=== PATIENT | female | born 1970 | race American Indian/Alaskan Native ===

== ENCOUNTER 2016-07-04 20:18 | Emergency (ER) | payer MEDICAID ==
[2016-07-04 20:37] VITALS: BP 129/87; TEMP 98.2; BMI 46.9
[2016-07-04] MEDS ORDERED: Oxycodone/Acetaminophen 5/325 mg Tab PO STA (21:05)
--- NOTE | 2016-07-04 21:17 | ED PDOC ---
Arrival/HPI - General Chief Complaint: Back Pain Time Seen by Provider: 07/04/16 20:51 Historian: Patient - History of Present Illness Narrative History of Present Illness (Text): 07/04/16 21:12 Rl Bowden is a 45 year old, whose past medical history includes diverticulitis, hypertension, and asthma, who presents to the ED complaining left lower back pain radiating down her left leg for 1 week. Patient states pain is worsened with movement and denies any relief after taking Advil. Patient denies any fever, chest pain, shortness of breath, cough, nausea, vomiting, urinary symptoms, or any other complaints. Time/Duration: 1 week Symptom Onset: Gradual Symptom Course: Unchanged Activities at Onset: Rest, Light Modifying Factors (Text): worse with movement, no relief with Advil Context: Home Past Medical History - Provider Review Nursing Documentation Reviewed: Yes - Infectious Disease Hx of Infectious Diseases: None - Tetanus Immunization Tetanus Immunization: Unknown - Cardiac Hx Cardiac Disorders: Yes Hx Hypertension: Yes - Pulmonary Hx Respiratory Disorders: Yes Hx Asthma: Yes Hx Sleep Apnea: Yes - Neurological Hx Neurological Disorder: No - HEENT Hx HEENT Disorder: No - Renal Hx Renal Disorder: No - Endocrine/Metabolic Hx Endocrine Disorders: No - Hematological/Oncological Hx Blood Disorders: No - Integumentary Hx Dermatological Disorder: No - Musculoskeletal/Rheumatological Hx Musculoskeletal Disorders: No - Gastrointestinal Hx Gastrointestinal Disorders: Yes Hx Diverticulitis: Yes - Genitourinary/Gynecological Hx Genitourinary Disorders: No - Psychiatric Hx Psychophysiologic Disorder: No Hx Substance Use: No - Past Surgical History Past Surgical History: No Previous - Surgical History Other/Comment: Left breast lymph node removed - Anesthesia Hx Anesthesia: Yes Hx Anesthesia Reactions: No Hx Malignant Hyperthermia: No - Suicidal Assessment Feels Threatened In Home Enviroment: No Family/Social History - Physician Review Nursing Documentation Reviewed: Yes Family/Social History: No Known Family HX Smoking Status: Former Smoker Hx Alcohol Use: No Hx Substance Use: No Hx Substance Use Treatment: No Allergies/Home Meds Allergies/Adverse Reactions: Allergies Penicillins Allergy (Verified 04/30/16 08:00) ANAPHYLAXIS Home Medications: Home Meds Medication Instructions Recorded Confirmed Albuterol HFA [Ventolin HFA 90 2 puff IH [id number] PRN 10/15/14 07/04/16 mcg/actuation (8 g)] Review of Systems - Physician Review All systems were reviewed & negative as marked: Yes - Review of Systems Constitutional: Normal. absent: Fevers Respiratory: Normal. absent: SOB, Cough Cardiovascular: Normal. absent: Chest Pain Gastrointestinal: Normal. absent: Abdominal Pain, Nausea, Vomiting Genitourinary Female: Normal. absent: Dysuria, Frequency, Hematuria, Urine Output Changes Musculoskeletal: Back Pain (+left lower back pain) Psychiatric: Normal Physical Exam - Physical Exam Narrative Physical Exam (Text): Morbidly obese, black female Vital Signs Reviewed: Yes Vital Signs Temp Pulse Resp BP Pulse Ox 07/04/16 20:35 98.2 F 101 H 16 129/87 96 Temperature: Afebrile Blood Pressure: Normal Pulse: Regular Respiratory Rate: Normal Appearance: Positive for: Well-Appearing, Non-Toxic, Comfortable Pain Distress: None Mental Status: Positive for: Alert and Oriented X 3 - Systems Exam Head: Present: Atraumatic, Normocephalic Mouth: Present: Moist Mucous Membranes Respiratory/Chest: Present: Clear to Auscultation, Good Air Exchange. No: Respiratory Distress, Accessory Muscle Use Cardiovascular: Present: Regular Rate and Rhythm Abdomen: Present: Normal Bowel Sounds. No: Tenderness, Distention, Peritoneal Signs Back: Present: Normal Inspection. No: Midline Tenderness, Paraspinal Tenderness Lower Extremity: Present: Normal Inspection. No: Edema Neurological: Present: GCS=15 Skin: Present: Warm, Dry, Normal Color. No: Rashes Psychiatric: Present: Alert, Oriented x 3, Normal Insight, Normal Concentration Medical Decision Making ED Course and Treatment: 07/04/16 21:12 Impression: 45 year old female complaining of left lower back pain radiating down left leg for 1 week. Plan: -- XR Lumbar Spine -- Urinalysis -- Percocet -- Toradol -- Valium -- Reassess and disposition Progress Notes: 07/04/16 22:34 Patient with back pain with no grave signs. XR unremarkable. Patient feeling better after meds. Urine with no UTI or RBCs; doubt urinary source - will d/c on nsaid, muscle relaxant and analgesic and f/u pmd. - Lab Interpretations Lab Results: Lab Results 07/04/16 21:22: Urine Color Yellow, Urine Appearance Clear, Urine pH 6.0, Ur Specific Elkins 1.025, Urine Protein Negative, Urine Glucose (UA) Negative, Urine Ketones Negative, Urine Blood Trace-lysed H, Urine Nitrate Negative, Urine Bilirubin Negative, Urine Urobilinogen 0.2, Ur Leukocyte Esterase Negative , Urine RBC 0 - 2, Urine WBC 0 - 2, Ur Epithelial Cells 4 - 5, Urine Bacteria Few I have reviewed the lab results: Yes - RAD Interpretation Radiology Orders: 07/04/16 21:12 LS SPINE WITH OBL > 18 YRS OLD [RAD] Stat Title Search Manager: ED Physician - Medication Orders Current Medication Orders: Discontinued Medications Diazepam (Valium) 2.5 mg PO ONCE STA Stop: 07/04/16 21:06 Last Admin: 07/04/16 21:24 Dose: 2.5 MG Behavioural Document 07/04/16 21:24 [email or web address] (Rec: 07/04/16 21:24 [email or web address] [id number]) Maintenance Maintenance Dose Yes Nonmedicinal Nonmedicinal Interventions Redirect Behavior Behavior for Medication: Anxiety Ketorolac Tromethamine (Toradol) 60 mg IM STAT STA Stop: 07/04/16 21:06 Last Admin: 07/04/16 21:24 Dose: 60 MG IM Administration Charges Document 07/04/16 21:24 [email or web address] (Rec: 07/04/16 21:24 [email or web address] [id number]) Injection Site MAR Injection Site Right Gluteus Justin Charges for Administration # of IM Administrations 1 Oxycodone/Acetaminophen (Percocet 5/325 Mg Tab) 1 tab PO STAT STA Stop: 07/04/16 21:06 Last Admin: 07/04/16 21:24 Dose: 1 TAB - Scribe Statement The provider has reviewed the documentation as recorded by the Ac Jackson Provider Attestation: All medical record entries made by the Ac were at my direction and personally dictated by me. I have reviewed the chart and agree that the record accurately reflects my personal performance of the history, physical exam, medical decision making, and the department course for this patient. I have also personally directed, reviewed, and agree with the discharge instructions and disposition. Disposition/Present on Arrival - Present on Arrival Any Indicators Present on Arrival: No History of DVT/PE: No History of Uncontrolled Diabetes: No Urinary Catheter: No History of Decub. Ulcer: No History Surgical Site Infection Following: None - Disposition Have Diagnosis and Disposition been Completed?: Yes Diagnosis: Lumbar radiculopathy Disposition: HOME/ ROUTINE Disposition Time: 22:40 Patient Plan: Discharge Patient Problems: Current Active Problems Problem Status Diagnosed Diverticulitis large intestine w/o perforation or abscess w/o bleeding Acute Lumbar radiculopathy Acute Condition: GOOD Discharge Instructions (ExitCare): Lumbar Radiculopathy (ED) Additional Instructions: Avoid heavy lifting. Take the medications as prescribed. Follow up with your primary care doctor. Return to the emergency department if any new concerning symptoms. Prescriptions: Baclofen [Lioresal] 1 tab PO TID PRN #20 tab PRN Reason: Pain, Moderate (4-7) Naproxen [Naprosyn] 500 mg PO BID PRN #20 tab PRN Reason: Pain oxyCODONE/Acetaminophen [Percocet 5/325 mg Tab] 1 tab PO Q6H PRN #12 tab PRN Reason: Pain, Severe (8-10) Referrals: Mark Castellanos DO [Primary Care Provider] - Follow up with primary Forms: WORK NOTE
[2016-07-04 22:06] LABS: URINE BILIRUBIN NEGATIVE (NEGATIVE); URINE BLOOD TRACE-LYSED (NEGATIVE); URINE GLUCOSE (UA) NEGATIVE (NEGATIVE); URINE KETONE NEGATIVE (NEGATIVE); URINE LEUKOCYTE ESTERASE NEGATIVE Leu/uL (NEGATIVE); URINE PROTEIN NEGATIVE mg/dL (<30 mg/dL); URINE UROBILINOGEN 0.2 E.U./dL (<1 E.U./dL)
[2016-07-04 22:08] LABS: URINE APPEARANCE CLEAR (CLEAR); URINE COLOR YELLOW (YELLOW)
[2016-07-04 22:14] LABS: URINE RBC 0 - 2 /hpf (0-2); URINE WBC 0 - 2 /hpf (0-6)
[2016-07-04 22:15] LABS: URINE BACTERIA FEW (NEG)
[2016-07-04 22:46] VITALS: PULSE 99; RESP 18
[2016-07-04 22:47] VITALS: O2SAT 96
--- NOTE | 2016-07-05 09:43 | RAD ---
PROCEDURE: Radiographs of the Lumbar Spine. HISTORY: Low back pain COMPARISON: No prior. FINDINGS: BONES: There is normal alignment of the lumbar vertebral bodies. Lumbar lordosis is maintained. Vertebral bodies are normal in height. There is no acute fracture or bone destruction. There is no spondylolysis or spondylolisthesis. DISC SPACES: There is mild multilevel degenerative disc disease in the lower lumbar spine with anterior spurring, reduced disc heights and multilevel facet arthropathy, worse at L5-S1. OTHER FINDINGS: None. IMPRESSION: No acute fracture, spondylolysis or spondylolisthesis. Mild multilevel degenerative disc disease in the lower lumbar spine, worse at L5-S1.
== END 2016-07-04 22:47 | disposition home or self-care (01) ==
LOC: ED 20:18
DX: M54.16 Radiculopathy, lumbar region (principal); Z87.891 Personal history of nicotine dependence; Z88.0 Allergy status to penicillin
CPT/HCPCS: 72110; 81001; 96372; 99282; J1885

== ENCOUNTER 2016-08-19 15:27 | Emergency (ER) | payer MEDICAID ==
[2016-08-20 01:06] LABS: ADD MANUAL DIFF? NO
[2016-08-20 08:35] LABS: INR 0.94 (0.93-1.08); PARTIAL THROMBOPLASTIN TIME 20.9 Seconds (23.7-30.8)
[2016-08-20 10:46] LABS: HEMATOCRIT 42.6 % (36.0-48.0); MEAN CELL VOLUME 90.6 fL (80.0-105.0); MEAN CORPUSCULAR HEMOGLOBIN 30.9 pg (25.0-35.0); MEAN PLATELET VOLUME 10.1 fl (7.0-11.0); RED CELL DISTRIBUTION WIDTH 13.6 % (11.5-14.5); WHITE BLOOD COUNT 7.6 10^3/ul (4.5-11.0)
--- NOTE | 2016-08-20 14:43 | US ---
HISTORY: Leg pain and swelling. Evaluate for DVT PHYSICIAN(S): Travon Teran MD. TECHNIQUE: Duplex sonography and color-flow Doppler with graded compression were used to evaluate the deep venous systems of both lower extremities. The exam is somewhat limited by body habitus and edema. FINDINGS: The visualized deep venous systems of both lower extremities are sonographically normal and compressible. Normal wave forms and augmentation are seen. There is no sonographic evidence for deep venous thrombosis in the visualized segments of both lower extremities. IMPRESSION: No sonographic evidence for deep venous thrombosis in the visualized segments of both lower extremities.
[2016-08-20 15:40] LABS: BLOOD UREA NITROGEN 14 mg/dL (7-21); CALCIUM 9.3 mg/dL (8.4-10.5); CARBON DIOXIDE 27 mmol/L (21-33); CHLORIDE 102 mmol/L (98-107); GFR AFRICAN-AMERICAN > 60; GLUCOSE,RANDOM 99 mg/dL (70-110); MAGNESIUM 2.1 mg/dL (1.7-2.2); SODIUM 140 mmol/L (132-148)
[2016-08-20 17:04] LABS: BASO # 0.01 K/mm3 (0.0-2.0); BASO % 0.1 % (0.0-3.0); EOS # 0.1 (0.0-0.7); EOS % 1.2 % (1.5-5.0); GRAN # 4.52 (1.4-6.5); GRAN % 59.2 % (50.0-68.0); HEMATOCRIT 42.6 % (36.0-48.0); LYMPH # 2.6 (1.2-3.4); LYMPH % 34.5 % (22.0-35.0); MEAN CELL VOLUME 90.6 fL (80.0-105.0); MEAN CORPUSCULAR HEMOGLOBIN 30.9 pg (25.0-35.0); MEAN PLATELET VOLUME 10.1 fl (7.0-11.0); MONO # 0.4 (0.1-0.6); PLATELET COUNT 275 10^3/uL (120.0-450.0); RED CELL DISTRIBUTION WIDTH 13.6 % (11.5-14.5); WHITE BLOOD COUNT 7.6 10^3/ul (4.5-11.0)
[2016-08-24 03:28] LABS: GLUCOSE,RANDOM 99 mg/dL (70-110)
[2016-08-24 03:30] LABS: BLOOD UREA NITROGEN 14 mg/dL (7-21); CALCIUM 9.3 mg/dL (8.4-10.5); CARBON DIOXIDE 27 mmol/L (21-33); CHLORIDE 102 mmol/L (98-107); GFR AFRICAN-AMERICAN > 60; MAGNESIUM 2.1 mg/dL (1.7-2.2); SODIUM 140 mmol/L (132-148)
== END 2016-08-19 22:36 | disposition home or self-care (01) ==
LOC: ED 15:27
DX: M79.605 Pain in left leg (principal); M79.604 Pain in right leg; M79.89 Other specified soft tissue disorders; I10 Essential (primary) hypertension

== ENCOUNTER 2016-10-28 18:42 | Emergency (ER) | payer MEDICAID ==
[2016-10-28 18:42] VITALS: BMI 46.9
[2016-10-28] MEDS ORDERED: Albuterol-Ipratrop 3 mg / 0.5 (3 ml) UD IH STA (19:47)
[2016-10-28 19:56] VITALS: BP 123/81; PULSE 97; RESP 19; TEMP 98; O2SAT 94
--- NOTE | 2016-10-28 20:06 | ED PDOC ---
Arrival/HPI - General Chief Complaint: Cough, Cold, Congestion Time Seen by Provider: 10/28/16 19:35 Historian: Patient - History of Present Illness Narrative History of Present Illness (Text): 10/28/16 20:03 45 yo female, h/o HTN, Asthma, Diverticulitis, Gastric Sleeve Surgery, presents to the ED c/o cough x 2 days. States that the cough is clear and white. No nasal congestion or gunny nose. No fever, chills or bodyaches. She denies any chest pain or shortness of breathe. She is here visiting her son in the hospital so she just wanted to make sure she didn't have Pneumonia. No recent travel or prolonged immobilization. No leg pain or swelling. No h/o DVT or PE. No hemoptysis. No OCP use. PMD: Dr. Castellanos Past Medical History - Provider Review Nursing Documentation Reviewed: Yes - Travel History Have you recently traveled outside [place] w/in the past 3 mons?: No - Infectious Disease Hx of Infectious Diseases: None - Tetanus Immunization Tetanus Immunization: Unknown - Cardiac Hx Cardiac Disorders: Yes Hx Hypertension: Yes - Pulmonary Hx Respiratory Disorders: Yes Hx Asthma: Yes Hx Sleep Apnea: Yes - Neurological Hx Neurological Disorder: No - HEENT Hx HEENT Disorder: No - Renal Hx Renal Disorder: No - Endocrine/Metabolic Hx Endocrine Disorders: No - Hematological/Oncological Hx Blood Disorders: No - Integumentary Hx Dermatological Disorder: No - Musculoskeletal/Rheumatological Hx Musculoskeletal Disorders: No - Gastrointestinal Hx Gastrointestinal Disorders: Yes Hx Diverticulitis: Yes - Genitourinary/Gynecological Hx Genitourinary Disorders: No - Psychiatric Hx Psychophysiologic Disorder: No Hx Substance Use: No - Past Surgical History Past Surgical History: No Previous - Surgical History Hx Gastric Bypass Surgery: Yes (gastric sleeve) Other/Comment: Left breast lymph node removed - Anesthesia Hx Anesthesia: Yes Hx Anesthesia Reactions: No Hx Malignant Hyperthermia: No - Suicidal Assessment Feels Threatened In Home Enviroment: No Family/Social History - Physician Review Nursing Documentation Reviewed: Yes Family/Social History: No Known Family HX Smoking Status: Former Smoker Hx Alcohol Use: No Hx Substance Use: No Hx Substance Use Treatment: No Allergies/Home Meds Allergies/Adverse Reactions: Allergies Penicillins Allergy (Verified 04/30/16 08:00) ANAPHYLAXIS Home Medications: Home Meds Medication Instructions Recorded Confirmed Albuterol HFA [Ventolin HFA 90 2 puff IH [id number] PRN 10/15/14 10/28/16 mcg/actuation (8 g)] amLODIPine [Norvasc] 5 mg PO DAILY 10/28/16 10/28/16 Review of Systems - Review of Systems Constitutional: Normal Eyes: Normal ENT: Normal Respiratory: Cough, Sputum. absent: SOB, Wheezing Cardiovascular: Normal. absent: Chest Pain, Calf Pain, NEUMANN, Orthopnea Gastrointestinal: Normal Genitourinary Female: Normal Musculoskeletal: Normal Skin: Normal Neurological: Normal Endocrine: Normal Hemo/Lymphatic: Normal Psychiatric: Normal Physical Exam Vital Signs Reviewed: Yes Vital Signs Temp Pulse Resp BP Pulse Ox 10/28/16 19:53 98.0 F 97 H 19 123/81 94 L 10/28/16 18:50 88 10/28/16 18:45 98.6 F 107 H 18 100/62 95 Temperature: Afebrile Blood Pressure: Normal Pulse: Tachycardic Respiratory Rate: Normal Appearance: Positive for: Well-Appearing, Non-Toxic, Comfortable Pain Distress: None Mental Status: Positive for: Alert and Oriented X 3 - Systems Exam Head: Present: Atraumatic, Normocephalic Pupils: Present: PERRL Extroacular Muscles: Present: EOMI Conjunctiva: Present: Normal Mouth: Present: Moist Mucous Membranes Neck: Present: Normal Range of Motion Respiratory/Chest: Present: Clear to Auscultation, Good Air Exchange. No: Respiratory Distress, Accessory Muscle Use, Wheezes, Decreased Breath Sounds, Rhonchi Cardiovascular: Present: Regular Rate and Rhythm, Normal S1, S2. No: Murmurs Abdomen: Present: Normal Bowel Sounds. No: Tenderness, Distention, Peritoneal Signs Back: Present: Normal Inspection Upper Extremity: Present: Normal Inspection. No: Cyanosis, Edema Lower Extremity: Present: Normal Inspection. No: Edema Neurological: Present: GCS=15, CN II-XII Intact, Speech Normal Skin: Present: Warm, Dry, Normal Color. No: Rashes Psychiatric: Present: Alert, Oriented x 3, Normal Insight, Normal Concentration Medical Decision Making ED Course and Treatment: 10/28/16 20:06 45 yo female with cough r/o bronchitis vs pneumonia vs asthma exacerbation -- XRay -- duoneb -- reevaluate and disposition 10/28/16 20:10 RN Cady told me that patient walked out of the department. When asked where she was going she stated she was going to make a phone call. RN tried to convince her not to go and patient left anyway. Patient did not return to the ED. - RAD Interpretation Radiology Orders: 10/28/16 19:47 CHEST TWO VIEWS (PA/LAT) [RAD] Stat - Medication Orders Current Medication Orders: Discontinued Medications Albuterol/Ipratropium (Duoneb 3 Mg/0.5 Mg (3 Ml) Ud) 3 ml IH STAT STA Stop: 10/28/16 19:48 Disposition/Present on Arrival - Present on Arrival Any Indicators Present on Arrival: No History of DVT/PE: No History of Uncontrolled Diabetes: No Urinary Catheter: No History of Decub. Ulcer: No History Surgical Site Infection Following: Bariatric Surgery - Disposition Have Diagnosis and Disposition been Completed?: No Diagnosis: Cough Disposition: ELOPEMENT - ER ONLY Disposition Time: 20:10 Condition: GOOD Referrals: Mark Castellanos, [Primary Care Provider] - Follow up with primary Forms: [employer] (Yakut)
== END 2016-10-28 20:10 | disposition left against medical advice (07) ==
LOC: ED 18:42
DX: R05 Cough (principal); I10 Essential (primary) hypertension; J45.909 Unspecified asthma, uncomplicated; Z87.891 Personal history of nicotine dependence

== ENCOUNTER 2017-02-22 14:52 | Emergency (ER) | payer MEDICAID ==
[2017-02-22 15:12] VITALS: RESP 18; TEMP 98.2; O2SAT 98
[2017-02-22 15:15] VITALS: BMI 73.7
--- NOTE | 2017-02-22 15:58 | ED PDOC ---
Arrival/HPI - General Chief Complaint: Upper Extremity Problem/Injury Time Seen by Provider: 02/22/17 15:12 Historian: Patient - History of Present Illness Narrative History of Present Illness (Text): 02/22/17 15:55 46yo female present with complaint of left shoulder pain x one week. Notes that pain started when she woke up from sleep. Pain is worse with abduction of arm. States the pain intermittently radiates to her neck. She did not take any analgesic. Denies focal weakness, trauma, paresthesia, chest pain, SOB, any other complaint. Past Medical History - Provider Review Nursing Documentation Reviewed: Yes - Infectious Disease Hx of Infectious Diseases: None - Tetanus Immunization Tetanus Immunization: Unknown - Cardiac Hx Cardiac Disorders: Yes Hx Hypertension: Yes - Pulmonary Hx Respiratory Disorders: Yes Hx Asthma: Yes Hx Sleep Apnea: Yes - Neurological Hx Neurological Disorder: No - HEENT Hx HEENT Disorder: No - Renal Hx Renal Disorder: No - Endocrine/Metabolic Hx Endocrine Disorders: No - Hematological/Oncological Hx Blood Disorders: No - Integumentary Hx Dermatological Disorder: No - Musculoskeletal/Rheumatological Hx Musculoskeletal Disorders: No - Gastrointestinal Hx Gastrointestinal Disorders: Yes Hx Diverticulitis: Yes - Genitourinary/Gynecological Hx Genitourinary Disorders: No - Psychiatric Hx Psychophysiologic Disorder: No Hx Substance Use: No - Past Surgical History Past Surgical History: No Previous - Surgical History Hx Gastric Bypass Surgery: Yes (gastric sleeve) Other/Comment: Left breast lymph node removed - Anesthesia Hx Anesthesia: Yes Hx Anesthesia Reactions: No Hx Malignant Hyperthermia: No - Suicidal Assessment Feels Threatened In Home Enviroment: No Family/Social History - Physician Review Nursing Documentation Reviewed: Yes Family/Social History: Unknown Family HX Smoking Status: Current Some Days Smoker Hx Alcohol Use: Yes Hx Substance Use: No Hx Substance Use Treatment: No Allergies/Home Meds Allergies/Adverse Reactions: Allergies Penicillins Allergy (Verified 04/30/16 08:00) ANAPHYLAXIS Home Medications: Home Meds Medication Instructions Recorded Confirmed Albuterol HFA [Ventolin HFA 90 2 puff IH [id number] PRN 10/15/14 10/28/16 mcg/actuation (8 g)] amLODIPine [Norvasc] 5 mg PO DAILY 10/28/16 10/28/16 Review of Systems - Physician Review All systems were reviewed & negative as marked: Yes - Review of Systems Constitutional: Normal Eyes: Normal ENT: Normal Respiratory: Normal Cardiovascular: Normal Gastrointestinal: Normal Genitourinary Female: Normal Musculoskeletal: Arthralgias (Left shoulder pain) Skin: Normal Neurological: Normal Endocrine: Normal Hemo/Lymphatic: Normal Psychiatric: Normal Physical Exam Vital Signs Reviewed: Yes Vital Signs Temp Pulse Resp BP Pulse Ox 02/22/17 15:12 98.2 F 85 18 142/86 98 Temperature: Afebrile Blood Pressure: Normal Pulse: Regular Respiratory Rate: Normal Appearance: Positive for: Well-Appearing, Non-Toxic, Comfortable Pain Distress: None Mental Status: Positive for: Alert and Oriented X 3 - Systems Exam Head: Present: Atraumatic, Normocephalic Pupils: Present: PERRL Extroacular Muscles: Present: EOMI Conjunctiva: Present: Normal Mouth: Present: Moist Mucous Membranes Neck: Present: Normal Range of Motion Respiratory/Chest: Present: Clear to Auscultation, Good Air Exchange. No: Respiratory Distress, Accessory Muscle Use Cardiovascular: Present: Regular Rate and Rhythm, Normal S1, S2. No: Murmurs Abdomen: Present: Normal Bowel Sounds. No: Tenderness, Distention, Peritoneal Signs Back: Present: Normal Inspection Upper Extremity: Present: Normal ROM (FROM with pain on abduction up to 120degree), NORMAL PULSES, Tenderness (Left AC joint), Neurovascularly Intact. No: Cyanosis, Edema, Swelling, Deformity Lower Extremity: Present: Normal Inspection. No: Edema Neurological: Present: GCS=15, CN II-XII Intact, Speech Normal Skin: Present: Warm, Dry, Normal Color. No: Rashes Psychiatric: Present: Alert, Oriented x 3, Normal Insight, Normal Concentration Medical Decision Making ED Course and Treatment: 02/22/17 16:16 Pt in Ed for stated history. she had FROM of left arm. NVI. Distal and proximal pulse was intact. Left shoulder xray was negative EKG PT will be DC home with Betsy and refereed to her PMd/ortho for further outpt evaluation - RAD Interpretation Radiology Orders: 02/22/17 15:14 SHOULDER LEFT [RAD] Stat - Medication Orders Current Medication Orders: Discontinued Medications Ketorolac Tromethamine (Toradol) 60 mg IM STAT STA Stop: 02/22/17 15:16 Last Admin: 02/22/17 15:29 Dose: 60 mg MAR Pain Assessment Document 02/22/17 15:29 HI (Rec: 02/22/17 15:37 [id number]) Pain Reassessment Is this a pain reassessment? No Sleep Is patient sleeping during reassessment? No Presence of Pain Presence of Pain Yes Pain Scale Used Pain Scale Used Numeric Location Left, Right or Bilateral Left Pain Location Body Site Shoulder IM Administration Charges Document 02/22/17 15:29 HI (Rec: 02/22/17 15:37 [id number]) Injection Site MAR Injection Site Right Gluteus Justin Charges for Administration # of IM Administrations 1 Disposition/Present on Arrival - Present on Arrival Any Indicators Present on Arrival: No History of DVT/PE: No History of Uncontrolled Diabetes: No Urinary Catheter: No History of Decub. Ulcer: No History Surgical Site Infection Following: Bariatric Surgery - Disposition Have Diagnosis and Disposition been Completed?: Yes Diagnosis: Shoulder pain Disposition: HOME/ ROUTINE Disposition Time: 16:20 Patient Plan: Discharge Condition: STABLE Discharge Instructions (ExitCare): Shoulder Pain (ED) Additional Instructions: Follow up with your doctor Return to ED for any new or worsening symptoms Prescriptions: Naproxen [Naprosyn] 500 mg PO BID #20 tab Referrals: Mark Castellanos DO [Primary Care Provider] - Follow up with primary Huey Cameron III, MD [Medical Doctor] - Follow up with primary Forms: [employer] (Welsh), WORK NOTE
--- NOTE | 2017-02-22 16:00 | RAD ---
PROCEDURE: Radiographs of the Left Shoulder HISTORY: shoulder pain COMPARISON: No prior. FINDINGS: BONES: Normal. No fracture. JOINTS: Normal. Glenohumeral and acromioclavicular joints preserved. No osteoarthritis. SOFT TISSUES: Normal. OTHER FINDINGS: None. IMPRESSION: Normal radiographs of the left shoulder.
[2017-02-22 16:14] VITALS: BP 138/79; PULSE 75
[2017-02-22] MEDS ORDERED: Oxycodone/Acetaminophen 5/325 mg Tab PO STA (16:18)
--- NOTE | 2017-02-23 08:08 | CARD ---
APPROVED REPORT EKG Measurement Heart [id number] <Conclusion> Sinus rhythm with 1 PVC Otherwise normal ECG
== END 2017-02-22 16:33 | disposition home or self-care (01) ==
LOC: ED 14:52
DX: M25.512 Pain in left shoulder (principal); I10 Essential (primary) hypertension; F17.210 Nicotine dependence, cigarettes, uncomplicated
CPT/HCPCS: 73030; 93005; 96372; 99284; J1885

== ENCOUNTER 2017-07-11 19:29 | Emergency (ER) | payer MEDICAID ==
[2017-07-11 19:30] VITALS: BMI 73.7
[2017-07-11 19:37] VITALS: BP 132/82; TEMP 98.4
--- NOTE | 2017-07-11 20:01 | ED PDOC ---
Arrival/HPI <Fili Pike - Last Filed: 07/11/17 20:17> - General Historian: Patient <Mariann Owens - Last Filed: 07/11/17 20:41> - General Chief Complaint: Abnormal Skin Integrity Time Seen by Provider: 07/11/17 19:44 - History of Present Illness Narrative History of Present Illness (Text): 07/11/17 19:58 46yo female who present with complaint of painful bump to her nose. States bump started after a cell phone accidentally hit the area. states the scab broke off and then she noticed the bump. she reports pain to the bump. denies fever, chills, purulent discharge, redness, any other complaint. (Mariann Owens A) Past Medical History - Provider Review Nursing Documentation Reviewed: Yes - Infectious Disease Hx of Infectious Diseases: None - Tetanus Immunization Tetanus Immunization: Unknown - Cardiac Hx Cardiac Disorders: Yes Hx Hypertension: Yes - Pulmonary Hx Respiratory Disorders: Yes Hx Asthma: Yes Hx Sleep Apnea: Yes - Neurological Hx Neurological Disorder: No - HEENT Hx HEENT Disorder: No - Renal Hx Renal Disorder: No - Endocrine/Metabolic Hx Endocrine Disorders: No - Hematological/Oncological Hx Blood Disorders: No - Integumentary Hx Dermatological Disorder: No - Musculoskeletal/Rheumatological Hx Musculoskeletal Disorders: No - Gastrointestinal Hx Gastrointestinal Disorders: Yes Hx Diverticulitis: Yes - Genitourinary/Gynecological Hx Genitourinary Disorders: No - Psychiatric Hx Psychophysiologic Disorder: No Hx Substance Use: No - Past Surgical History Past Surgical History: No Previous - Surgical History Hx Gastric Bypass Surgery: Yes (gastric sleeve) Other/Comment: Left breast lymph node removed - Anesthesia Hx Anesthesia: Yes Hx Anesthesia Reactions: No Hx Malignant Hyperthermia: No - Suicidal Assessment Feels Threatened In Home Enviroment: No <Mariann Owens - Last Filed: 07/11/17 20:41> Family/Social History - Physician Review Nursing Documentation Reviewed: Yes Family/Social History: Unknown Family HX Smoking Status: Current Some Days Smoker Hx Alcohol Use: Yes Hx Substance Use: No Hx Substance Use Treatment: No <Mariann Owens A - Last Filed: 07/11/17 20:41> Allergies/Home Meds <Fili Pike - Last Filed: 07/11/17 20:17> <Mariann Owens A - Last Filed: 07/11/17 20:41> Allergies/Adverse Reactions: Allergies Penicillins Allergy (Verified 07/11/17 19:31) ANAPHYLAXIS Review of Systems - Physician Review All systems were reviewed & negative as marked: Yes - Review of Systems Constitutional: Normal Eyes: Normal ENT: Normal Respiratory: Normal Cardiovascular: Normal Gastrointestinal: Normal Genitourinary Female: Normal Musculoskeletal: Normal Skin: Other (bump to nose) Neurological: Normal Endocrine: Normal Hemo/Lymphatic: Normal Psychiatric: Normal <Mariann Owens A - Last Filed: 07/11/17 20:41> Physical Exam Vital Signs Reviewed: Yes Temperature: Afebrile Blood Pressure: Normal Pulse: Regular Respiratory Rate: Normal Appearance: Positive for: Well-Appearing, Non-Toxic, Comfortable Pain Distress: None Mental Status: Positive for: Alert and Oriented X 3 - Systems Exam Head: Present: Atraumatic, Normocephalic Pupils: Present: PERRL Extroacular Muscles: Present: EOMI Conjunctiva: Present: Normal Mouth: Present: Moist Mucous Membranes Neck: Present: Normal Range of Motion Respiratory/Chest: Present: Clear to Auscultation, Good Air Exchange. No: Respiratory Distress, Accessory Muscle Use Cardiovascular: Present: Regular Rate and Rhythm, Normal S1, S2. No: Murmurs Abdomen: No: Tenderness, Distention, Peritoneal Signs Back: Present: Normal Inspection Upper Extremity: Present: Normal Inspection. No: Cyanosis, Edema Lower Extremity: Present: Normal Inspection. No: Edema Neurological: Present: GCS=15, CN II-XII Intact, Speech Normal Skin: Present: Warm, Dry, Normal Color, Other (Approximately 0.5cm x 0.5cm nodule noted on the nose around the nasolabial area. No erythema. No discharge. No purulent discharge.). No: Rashes Psychiatric: Present: Alert, Oriented x 3, Normal Insight, Normal Concentration <Mariann Owens A - Last Filed: 07/11/17 20:41> Vital Signs Temp Pulse Resp BP Pulse Ox 07/11/17 19:32 98.4 F 92 H 16 132/82 95 - Medication Orders Current Medication Orders: Discontinued Medications Clindamycin HCl (Cleocin) 300 mg PO STAT STA PRN Reason: Protocol Stop: 07/11/17 20:31 Last Admin: 07/11/17 20:39 Dose: Not Given Ibuprofen (Motrin Tab) 600 mg PO STAT STA Stop: 07/11/17 20:31 Last Admin: 07/11/17 20:39 Dose: Not Given - PA / VIBRATOR OPERATOR / Resident Statement [facility]IA has reviewed & agrees with the documentation as recorded. LEIA has examined the patient and agrees with the treatment plan. <Fili Pike - Last Filed: 07/11/17 20:17> Disposition/Present on Arrival <Fili Pike - Last Filed: 07/11/17 20:17> - Present on Arrival Any Indicators Present on Arrival: No History of DVT/PE: No History of Uncontrolled Diabetes: No Urinary Catheter: No History of Decub. Ulcer: No History Surgical Site Infection Following: Bariatric Surgery - Disposition Have Diagnosis and Disposition been Completed?: Yes Disposition Time: 20:40 Patient Plan: Discharge <Mariann Owens - Last Filed: 07/11/17 20:41> - Disposition Diagnosis: Acne-like skin bumps Disposition: HOME/ ROUTINE Patient Problems: Current Active Problems Problem Status Onset Acne-like skin bumps Acute Condition: STABLE Additional Instructions: Follow up with your doctor/ENT Return to ED fro any new symptoms Prescriptions: Clindamycin [Cleocin] 300 mg PO TID #21 cap Ibuprofen [Motrin Tab] 600 mg PO Q6 #15 tab Referrals: Mark Castellanos DO [Primary Care Provider] - Follow up with primary Neptali Alfaro DO [Staff Provider] - Follow up with primary Forms: [facility] ([place])
[2017-07-11 20:46] VITALS: PULSE 80; RESP 19; O2SAT 99
== END 2017-07-11 20:48 | disposition home or self-care (01) ==
LOC: ED 19:29
DX: L70.9 Acne, unspecified (principal)

== ENCOUNTER 2017-08-24 15:49 | Inpatient (IN) | payer MEDICAID ==
--- NOTE | 2017-08-24 15:52 | ED PDOC ---
Arrival/HPI - General Time Seen by Provider: 08/24/17 15:51 Historian: Patient - History of Present Illness Narrative History of Present Illness (Text): 08/24/17 15:52 46 y/o female, pmh including diverticulitis/UTI/renal stone, penicillin allergy , c/o lt. lower quadrant abdominal pain x 1 day with nausea/vomiting/diarrhea with fever this morning. Sharp pain, non-radiating, 7/10 pain severity, associated with nausea and couple episodes of non-bilious/non-bloody vomiting, couple episodes of soft stool. She had an episode of fever 101F this morning which she took motrin around 11am, no recent traveling, no recent antibiotic use for the past 4 weeks, no other medical or psychological complaints. Past Medical History - Provider Review Nursing Documentation Reviewed: Yes - Infectious Disease Hx of Infectious Diseases: None - Tetanus Immunization Tetanus Immunization: Unknown - Cardiac Hx Cardiac Disorders: Yes Hx Hypertension: Yes - Pulmonary Hx Respiratory Disorders: Yes Hx Asthma: Yes Hx Sleep Apnea: Yes - Neurological Hx Neurological Disorder: No - HEENT Hx HEENT Disorder: No - Renal Hx Renal Disorder: No - Endocrine/Metabolic Hx Endocrine Disorders: No - Hematological/Oncological Hx Blood Disorders: No - Integumentary Hx Dermatological Disorder: No - Musculoskeletal/Rheumatological Hx Musculoskeletal Disorders: No - Gastrointestinal Hx Gastrointestinal Disorders: Yes Hx Diverticulitis: Yes - Genitourinary/Gynecological Hx Genitourinary Disorders: No - Psychiatric Hx Psychophysiologic Disorder: No Hx Substance Use: No - Past Surgical History Past Surgical History: No Previous - Surgical History Hx Gastric Bypass Surgery: Yes (gastric sleeve) Other/Comment: Left breast lymph node removed - Anesthesia Hx Anesthesia: Yes Hx Anesthesia Reactions: No Hx Malignant Hyperthermia: No - Suicidal Assessment Feels Threatened In Home Enviroment: No Family/Social History - Physician Review Nursing Documentation Reviewed: Yes Family/Social History: Unknown Family HX Smoking Status: Current Some Days Smoker Hx Alcohol Use: Yes Hx Substance Use: No Hx Substance Use Treatment: No Allergies/Home Meds Allergies/Adverse Reactions: Allergies Penicillins Allergy (Verified 07/11/17 19:31) ANAPHYLAXIS Home Medications: Home Meds Medication Instructions Recorded Confirmed No Known Home Med 08/24/17 08/24/17 Review of Systems - Review of Systems Constitutional: Fevers. absent: Fatigue Eyes: absent: Vision Changes ENT: absent: Hearing Changes Respiratory: absent: SOB, Cough Cardiovascular: absent: Chest Pain Gastrointestinal: Abdominal Pain, Diarrhea, Nausea, Vomiting Musculoskeletal: absent: Arthralgias, Back Pain Skin: absent: Rash, Pruritis Psychiatric: absent: Anxiety, Depression Physical Exam Vital Signs Temp Pulse Resp BP Pulse Ox 08/24/17 16:27 98.9 F 86 18 138/76 98 Pain Distress: Moderate Mental Status: Positive for: Alert and Oriented X 3 - Systems Exam Head: Present: Atraumatic, Normocephalic Pupils: Present: PERRL Extroacular Muscles: Present: EOMI Conjunctiva: Present: Normal Mouth: Present: Moist Mucous Membranes Neck: Present: Normal Range of Motion Respiratory/Chest: Present: Clear to Auscultation, Good Air Exchange. No: Respiratory Distress, Accessory Muscle Use Cardiovascular: Present: Regular Rate and Rhythm, Normal S1, S2. No: Murmurs Abdomen: Present: Tenderness (+LLQ tenderness, no rash). No: Distention, Peritoneal Signs, Rebound, Guarding Back: Present: Normal Inspection. No: CVA Tenderness Upper Extremity: Present: Normal Inspection. No: Cyanosis, Edema Lower Extremity: Present: Normal Inspection. No: Edema Neurological: Present: GCS=15, CN II-XII Intact, Speech Normal Skin: Present: Warm, Dry, Normal Color. No: Rashes Psychiatric: Present: Alert, Oriented x 3, Normal Insight, Normal Concentration Medical Decision Making ED Course and Treatment: 08/24/17 16:07 -labs/vbg/ua -CT abdomen and pelvis with IV contrast -IVF/pepcid/zofran/morphine -Observe and reassess 08/24/17 20:05 -Urine hcg is negative -Labs show no acute findings -UA show no UTI -Sonogram: Unremarkable examination. -CT abdomen and pelvis show findings most compatible with acute or subacute left colonic diverticulitis though other etiologies are possible. Diffuse thickening seen through this segment of large bowel into the sigmoid colon and follow-up colonoscopy is advised following therapy. Trace microperforation is suggested but there is no abscess, ascites or prominent free intraperitoneal gas. -Pt. feels still in pain with mild relief with morphine and toradol, on dilaudid 1mg IV now, not tolerating po fluid or solid, stated that she's awared of the trace microperforation already? from the previous colonoscopy. -I will admit the patient for IV antibiotic cipro/flagyl and pain controlled. -residential advisor paged. 08/24/17 20:32 -I spoke to the night hospitalist DR. Mejia, and the medical psychotherapist, discussed about the case/labs/radiology result, will admit to the hospitalist service -I discussed with Dr. Colin, discussed about the case and agreed on the treatment/admission, he will put in the admission order. - Lab Interpretations Lab Results: 08/24/17 16:39 08/24/17 16:39 Lab Results 08/24/17 18:49: Urine Color Yellow, Urine Appearance Sl cloudy, Urine pH 7.0, Ur Specific [place] 1.020, Urine Protein 30 H, Urine Glucose (UA) Negative, Urine Ketones Trace H, Urine Blood Trace-intact H, Urine Nitrate Negative, Urine Bilirubin Negative, Urine Urobilinogen 0.2, Ur Leukocyte Esterase Negative , Urine RBC 0 - 2, Urine WBC 0 - 2, Ur Epithelial Cells 6 - 8, Urine Bacteria Trace 08/24/17 16:39: WBC 10.0 D, RBC 5.10, Hgb 16.0, Hct 45.8, MCV 89.8, MCH 31.4, MCHC 34.9, RDW 12.5, Plt Count 210, MPV 9.6, Gran % 79.0 H, Lymph % (Auto) 15.0 L, Gordon % (Auto) 5.6, Eos % (Auto) 0.2 L, Baso % (Auto) 0.2, Gran # 7.92 H, Lymph # (Auto) 1.5, Gordon # (Auto) 0.6, Eos # (Auto) 0.0, Baso # (Auto) 0.02 08/24/17 16:39: Sodium 144, Chloride 105, Potassium 4.1, Carbon Dioxide 28, Anion Gap 14, BUN 13, Creatinine 1.2, Est GFR ( Amer) 59, Est GFR (Non- Af Amer) 48, Random Glucose 94, Calcium 9.6, Magnesium 2.0, Total Bilirubin 0.8 , AST 20, ALT 25, Alkaline Phosphatase 61, Total Protein 8.1, Albumin 4.5, Globulin 3.6, Albumin/Globulin Ratio 1.3, Lipase 54 08/24/17 16:39: pO2 30, VBG pH 7.33, VBG pCO2 57.0, VBG HCO3 30.1 H, VBG Total CO2 31.8 H, VBG O2 Sat (Calc) 61.5, VBG Base Excess 2.8 H, VBG Potassium 4.0, Sodium 139.0, Chloride 107.0, Glucose 93, Lactate 0.7, FiO2 21.0, Venous Blood Potassium 4.0 I have reviewed the lab results: Yes - RAD Interpretation Radiology Orders: 08/24/17 16:12 ABD & PELVIS IV CONTRAST ONLY [CT] Stat 08/24/17 17:55 TRANSVAGINAL [US] Stat Transvaginal sonogram: HISTORY: LLQ pain COMPARISON: None available. TECHNIQUE: Transvaginal FINDINGS: UTERUS: Measures 7.9 x 4.0 x 4.3 cm. Normal in size and appearance. No fibroid or other mass lesion seen. ENDOMETRIUM: Measures 4 mm in diameter. Unremarkable. CERVIX: No cervical abnormality identified. RIGHT OVARY: Not visualized LEFT OVARY: Not visualized FREE FLUID: No significant free fluid noted. OTHER FINDINGS: None. IMPRESSION: Unremarkable examination. CT Abdomen and pelvis: PROCEDURE: CT Abdomen and Pelvis with contrast HISTORY: LLQ pain/nausea/vomiting/diarrhea/fever x 1 day COMPARISON: Contrast abdomen and pelvis CT 04/30/2016. TECHNIQUE: Contrast dose: Omnipaque 300, 94 cc Radiation dose: Total exam DLP = 2187.54 mGy-cm. This CT exam was performed using one or more of the following dose reduction techniques: Automated exposure control, adjustment of the mA and/or kV according to patient size, and/or use of iterative reconstruction technique. Additional 94 cc Omnipaque 300 was injected into the patient's left antecubital fossa despite the lack of tenderness initially during the injection or other complaints by the patient. No contrast was identified throughout this CT exam performed. The emergency room nurse covering this patient was informed in came over 2 MRI and applied warm compresses to the arm and gave instructions for follow-up of this extravasation. Study was repeated following insertion of a 20 gauge intravenous catheter apparently into a vein at the right antecubital fossa. FINDINGS: LOWER THORAX: Unremarkable. LIVER: Unremarkable. No gross lesio is advised. N or ductal dilatation. GALLBLADDER AND BILE DUCTS: Unremarkable. PANCREAS: Unremarkable. No gross lesion or ductal dilatation. SPLEEN: Unremarkable. ADRENALS: Unremarkable. No mass. KIDNEYS AND URETERS: Tiny lucencies seen at the left kidney too small to characterize. No obstructive uropathy bilaterally. VASCULATURE: Unremarkable. No aortic aneurysm. BOWEL: Postop changes seen in the stomach which is collapsed, suggestive of gastric sleeve surgery previously. The bowel does not appear obstructed however there is extensive diverticular change involving the mid descending through distal sigmoid colon segment with mural thickening throughout this segment of bowel. This could reflect chronic diverticular change but the segment is collapsed limiting evaluation of the wall. Prominent pericolic reaction is seen at the mid and distal segment with trace extraluminal gas surrounding the distal descending colon in the pericolic gutter somewhat. The pattern is most compatible with diverticulitis with microperforation but no abscess formation at this time. There is no ascites either. Further clinical correlation APPENDIX: Normal appendix. PERITONEUM: As above in bowel section. LYMPH NODES: Unremarkable. No enlarged lymph nodes. BLADDER: Unremarkable. REPRODUCTIVE: Unremarkable. BONES: No acute fracture. OTHER FINDINGS: None. IMPRESSION: Findings most compatible with acute or subacute left colonic diverticulitis though other etiologies are possible. Diffuse thickening seen through this segment of large bowel into the sigmoid colon and follow-up colonoscopy is advised following therapy. Trace microperforation is suggested but there is no abscess, ascites or prominent free intraperitoneal gas. Maori Physiotherapist: Radiologist - Medication Orders Current Medication Orders: Discontinued Medications Famotidine (Pepcid) 20 mg IVP STAT STA Stop: 08/24/17 16:13 Last Admin: 08/24/17 16:41 Dose: 20 mg IVP Administration Document 08/24/17 16:41 MS (Rec: 08/24/17 16:41 MS [id number]) Charges for Administration # of IVP Administrations 1 Hydromorphone HCl (Dilaudid) 1 mg IVP STAT STA Stop: 08/24/17 19:44 Last Admin: 08/24/17 19:52 Dose: 1 mg MAR Pain Assessment Document 08/24/17 19:52 MS (Rec: 08/24/17 19:55 MS [id number]) Pain Reassessment Is this a pain reassessment? Yes Sleep Is patient sleeping during reassessment? No Presence of Pain Presence of Pain Yes Pain Scale Used Pain Scale Used Numeric Location Left, Right or Bilateral Left Upper or Lower Lower Pain Location Body Site Abdomen Description Description Constant Intensity of Pain at present 10 Pain Behavior Moaning Guarding Grasping Site Facial Grimacing IVP Administration Document 08/24/17 19:52 MS (Rec: 08/24/17 19:55 MS [id number]) Charges for Administration # of IVP Administrations 1 Sodium Chloride (Sodium Chloride 0.9%) 1,000 mls @ 999 mls/hr IV .Q1H1M STA Stop: 08/24/17 17:12 Last Admin: 08/24/17 16:41 Dose: 999 mls/hr eMAR Start Stop Document 08/24/17 16:41 MS (Rec: 08/24/17 16:42 MS [id number]) Intravenous Solution Start Date 08/24/17 Start Time 16:41 End Date 08/24/17 End time 17:41 Total Infusion Time 60 Ketorolac Tromethamine (Toradol) 30 mg IVP STAT STA Stop: 08/24/17 18:00 Last Admin: 08/24/17 19:08 Dose: 30 mg MAR Pain Assessment Document 08/24/17 19:08 MS (Rec: 08/24/17 19:08 MS [id number]) Pain Reassessment Is this a pain reassessment? No Sleep Is patient sleeping during reassessment? No Presence of Pain Presence of Pain Yes Pain Scale Used Pain Scale Used Numeric Location Left, Right or Bilateral Left Upper or Lower Lower Pain Location Body Site Abdomen Description Description Constant Intensity of Pain at present 9 IVP Administration Document 08/24/17 19:08 MS (Rec: 08/24/17 19:08 MS [id number]) Charges for Administration # of IVP Administrations 1 Metoclopramide HCl (Reglan) 10 mg IVP STAT STA Stop: 08/24/17 17:56 Last Admin: 08/24/17 19:08 Dose: 10 mg IVP Administration Document 08/24/17 19:08 MS (Rec: 08/24/17 19:08 MS [id number]) Charges for Administration # of IVP Administrations 1 Morphine Sulfate (Morphine) 4 mg IVP STAT STA Stop: 08/24/17 16:13 Last Admin: 08/24/17 16:41 Dose: 4 mg MAR Pain Assessment Document 08/24/17 16:41 MS (Rec: 08/24/17 16:41 MS [id number]) Pain Reassessment Is this a pain reassessment? No Sleep Is patient sleeping during reassessment? No Presence of Pain Presence of Pain Yes Pain Scale Used Pain Scale Used Numeric Location Left, Right or Bilateral Left Upper or Lower Lower Pain Location Body Site Abdomen Description Description Constant Intensity of Pain at present 10 Pain Behavior Moaning Irritability Grasping Site Facial Grimacing IVP Administration Document 08/24/17 16:41 MS (Rec: 08/24/17 16:41 MS [id number]) Charges for Administration # of IVP Administrations 1 Ondansetron HCl (Zofran Inj) 4 mg IVP STAT STA Stop: 08/24/17 16:13 Last Admin: 08/24/17 16:41 Dose: 4 mg IVP Administration Document 08/24/17 16:41 MS (Rec: 08/24/17 16:41 MS [id number]) Charges for Administration # of IVP Administrations 1 - PA / RESERVOIR ENGINEERING MANAGER / Resident Statement / has reviewed & agrees with the documentation as recorded. Disposition/Present on Arrival - Present on Arrival Any Indicators Present on Arrival: No History of DVT/PE: No History of Uncontrolled Diabetes: No Urinary Catheter: No History of Decub. Ulcer: No History Surgical Site Infection Following: Bariatric Surgery - Disposition Have Diagnosis and Disposition been Completed?: Yes Diagnosis: Intractable abdominal pain, Diverticulitis, Vomiting Disposition: HOSPITALIZED Disposition Time: 20:33 Patient Plan: Admission Patient Problems: Current Active Problems Problem Status Onset Diverticulitis Acute Intractable abdominal pain Acute Vomiting Acute Condition: STABLE Referrals: Mark Castellanos DO [Primary Care Provider] - Follow up with primary
[2017-08-24 16:08] VITALS: BMI 40.0
[2017-08-24] MEDS ORDERED: Sodium Chloride 0.9% 1,000 ML IV STA (16:12)
[2017-08-24] MEDS ORDERED: Morphine 4 mg/ml ISec IVP STA (16:12)
[2017-08-24 16:45] LABS: VENOUS BLOOD GAS BASE EXCESS 2.8 mmol/L (0.0-2.0); VENOUS BLOOD GAS PO2 30 mm/Hg (30-55); VENOUS BLOOD PH 7.33 (7.32-7.43)
[2017-08-24 16:48] LABS: BASO # 0.02 K/mm3 (0.0-2.0); BASO % 0.2 % (0.0-3.0); EOS % 0.2 % (1.5-5.0); GRAN # 7.92 (1.4-6.5); LYMPH # 1.5 (1.2-3.4); MEAN CELL VOLUME 89.8 fl (80.0-105.0); MEAN CORPUSCULAR HEMOGLOBIN 31.4 pg (25.0-35.0); MEAN CORPUSCULAR HGB CONC 34.9 g/dl (31.0-37.0); MEAN PLATELET VOLUME 9.6 fl (7.0-11.0); MONO # 0.6 (0.1-0.6); MONO % 5.6 % (1.0-6.0); RBC 5.1 10^6/uL (3.5-6.1); RED CELL DISTRIBUTION WIDTH 12.5 % (11.5-14.5)
[2017-08-24 17:02] LABS: ALB/GLOB RATIO 1.3 (1.1-1.8); ALBUMIN 4.5 g/dL (3.0-4.8); CALCIUM 9.6 mg/dL (8.4-10.5)
[2017-08-24] MEDS ORDERED: HYDROmorphone 1 mg/ml ISec IVP STA ×2 (17:55→19:43)
[2017-08-24] MEDS ORDERED: Iohexol 350 MG/100 ML VIAL ONE ×2 (18:07→18:49)
--- NOTE | 2017-08-24 18:38 | US ---
HISTORY: LLQ pain COMPARISON: None available. TECHNIQUE: Transvaginal FINDINGS: UTERUS: Measures 7.9 x 4.0 x 4.3 cm. Normal in size and appearance. No fibroid or other mass lesion seen. ENDOMETRIUM: Measures 4 mm in diameter. Unremarkable. CERVIX: No cervical abnormality identified. RIGHT OVARY: Not visualized LEFT OVARY: Not visualized FREE FLUID: No significant free fluid noted. OTHER FINDINGS: None. IMPRESSION: Unremarkable examination.
--- NOTE | 2017-08-24 19:26 | CT ---
PROCEDURE: CT Abdomen and Pelvis with contrast HISTORY: LLQ pain/nausea/vomiting/diarrhea/fever x 1 day COMPARISON: Contrast abdomen and pelvis CT 04/30/2016. TECHNIQUE: Contrast dose: Omnipaque 300, 94 cc Radiation dose: Total exam DLP = 2187.54 mGy-cm. This CT exam was performed using one or more of the following dose reduction techniques: Automated exposure control, adjustment of the mA and/or kV according to patient size, and/or use of iterative reconstruction technique. Additional 94 cc Omnipaque 300 was injected into the patient's left antecubital fossa despite the lack of tenderness initially during the injection or other complaints by the patient. No contrast was identified throughout this CT exam performed. The emergency room nurse covering this patient was informed in came over 2 MRI and applied warm compresses to the arm and gave instructions for follow-up of this extravasation. Study was repeated following insertion of a 20 gauge intravenous catheter apparently into a vein at the right antecubital fossa. FINDINGS: LOWER THORAX: Unremarkable. LIVER: Unremarkable. No gross lesio is advised. N or ductal dilatation. GALLBLADDER AND BILE DUCTS: Unremarkable. PANCREAS: Unremarkable. No gross lesion or ductal dilatation. SPLEEN: Unremarkable. ADRENALS: Unremarkable. No mass. KIDNEYS AND URETERS: Tiny lucencies seen at the left kidney too small to characterize. No obstructive uropathy bilaterally. VASCULATURE: Unremarkable. No aortic aneurysm. BOWEL: Postop changes seen in the stomach which is collapsed, suggestive of gastric sleeve surgery previously. The bowel does not appear obstructed however there is extensive diverticular change involving the mid descending through distal sigmoid colon segment with mural thickening throughout this segment of bowel. This could reflect chronic diverticular change but the segment is collapsed limiting evaluation of the wall. Prominent pericolic reaction is seen at the mid and distal segment with trace extraluminal gas surrounding the distal descending colon in the pericolic gutter somewhat. The pattern is most compatible with diverticulitis with microperforation but no abscess formation at this time. There is no ascites either. Further clinical correlation APPENDIX: Normal appendix. PERITONEUM: As above in bowel section. LYMPH NODES: Unremarkable. No enlarged lymph nodes. BLADDER: Unremarkable. REPRODUCTIVE: Unremarkable. BONES: No acute fracture. OTHER FINDINGS: None. IMPRESSION: Findings most compatible with acute or subacute left colonic diverticulitis though other etiologies are possible. Diffuse thickening seen through this segment of large bowel into the sigmoid colon and follow-up colonoscopy is advised following therapy. Trace microperforation is suggested but there is no abscess, ascites or prominent free intraperitoneal gas.
[2017-08-24 19:32] LABS: URINE BILIRUBIN NEGATIVE (NEGATIVE); URINE BLOOD TRACE-INTACT (NEGATIVE); URINE GLUCOSE (UA) NEGATIVE (NEGATIVE); URINE LEUKOCYTE ESTERASE NEGATIVE Leu/uL (NEGATIVE); URINE PROTEIN 30 mg/dL (<30 mg/dL); URINE UROBILINOGEN 0.2 E.U./dL (<1 E.U./dL)
[2017-08-24 19:33] LABS: URINE APPEARANCE SL CLOUDY (CLEAR); URINE COLOR YELLOW (YELLOW)
[2017-08-24 19:41] LABS: URINE BACTERIA TRACE (NEG); URINE RBC 0 - 2 /hpf (0-2); URINE WBC 0 - 2 /hpf (0-6)
[2017-08-24] MEDS ORDERED: Ciprofloxacin 400mg/200ml D5W 400 MG/200 ML BAG IVPB STA (20:08)
[2017-08-24] MEDS ORDERED: metroNIDAZOLE IV 500 mg/100 ml 500 MG/100 ML BAG IVPB STA (20:08)
[2017-08-24] MEDS ORDERED: Morphine 2 mg/ml ISec IVP PRN (20:57)
[2017-08-24] MEDS ORDERED: Dextrose 5%/0.45% NS 1,000 ML IV SCH (21:00)
--- NOTE | 2017-08-24 21:01 | CP.PCM.HP ---
<Tian Luong - Last Filed: 08/24/17 22:09> History of Present Illness - History of Present Illness History of Present Illness: 46 year old female with a past medical history of asthma, hypertension, diverticulosis, and 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 She reports taking Motrin and Tylenol without relief. She rates the pain 7/10, constant in nature, and and razor sharp pain when she defecates. She reports only tolerating crackers. She denies any blood per rectum, hematemesis, melena, She reports nausea, fever, vomiting, and painful defecation. She denies any recent sick contacts, eating anything out of the ordinary, chest pain, diaphoresis, or palpitations. She reports her last attack of diverticulitis was a year ago that required in patient admission. 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 absent: Weakness - EENT Eyes: absent: Blind Spots, Diplopia, Discharge - Cardiovascular Cardiovascular: absent: Chest Pain, Claudication, Dyspnea - Respiratory Respiratory: absent: Dyspnea, Hemoptysis, Dyspnea on Exertion - Gastrointestinal Gastrointestinal: Bloating, Cramping, Diarrhea, Loose Stools - Genitourinary Genitourinary: absent: Change in Urinary Stream, Difficulty Urinating, Dysuria - Musculoskeletal Musculoskeletal: absent: Abnormal Gait, Muscle Weakness, Myalgias - Integumentary Integumentary: absent: Alopecia, Photosensitivity, Pruritus - Neurological Neurological: absent: Abnormal Hearing, Burning Sensations, Numbness - Psychiatric Psychiatric: absent: Anhedonia, Anxiety, Irritability - Endocrine Endocrine: absent: Deepening of Voice, Excessive Sweating, Fatigue - Hematologic/Lymphatic Hematologic: absent: Easy Bleeding, Easy Bruising Past Patient History - Infectious Disease Hx of Infectious Diseases: None - Tetanus Immunizations Tetanus Immunization: Unknown - Past Social History Smoking Status: Current Some Days Smoker - CARDIAC Hx Cardiac Disorders: Yes Hx Hypertension: Yes - PULMONARY Hx Respiratory Disorders: Yes Hx Asthma: Yes Hx Sleep Apnea: Yes - NEUROLOGICAL Hx Neurological Disorder: No - HEENT Hx HEENT Problems: No - RENAL Hx Chronic Kidney Disease: No - ENDOCRINE/METABOLIC Hx Endocrine Disorders: No - HEMATOLOGICAL/ONCOLOGICAL Hx Blood Disorders: No - INTEGUMENTARY Hx Dermatological Problems: No - MUSCULOSKELETAL/RHEUMATOLOGICAL Hx Musculoskeletal Disorders: No - GASTROINTESTINAL Hx Gastrointestinal Disorders: Yes Hx Diverticulitis: Yes - GENITOURINARY/GYNECOLOGICAL Hx Genitourinary Disorders: No - PSYCHIATRIC Hx Psychophysiologic Disorder: No Hx Substance Use: No - SURGICAL HISTORY Hx Gastric Bypass Surgery: Yes (gastric sleeve) Other/Comment: Left breast lymph node removed - ANESTHESIA Hx Anesthesia: Yes Hx Anesthesia Reactions: No Hx Malignant Hyperthermia: No Meds Allergies/Adverse Reactions: Allergies Allergy/AdvReac Type Severity Reaction Status Date / Time Penicillins Allergy ANAPHYLAXIS Verified 07/11/17 19:31 Physical Exam - Constitutional Appears: Non-toxic - Head Exam Head Exam: ATRAUMATIC, NORMOCEPHALIC - Eye Exam Eye Exam: EOMI, Normal appearance - ENT Exam ENT Exam: Mucous Membranes Dry - Neck Exam Neck exam: Positive for: Normal Inspection - Respiratory Exam Respiratory Exam: Clear to Auscultation Bilateral, NORMAL BREATHING PATTERN. absent: Accessory Muscle Use - Cardiovascular Exam Cardiovascular Exam: RRR, +S1, +S2 - GI/Abdominal Exam GI & Abdominal Exam: Tenderness (diffuse). absent: Bruit - Rectal Exam Rectal Exam: Deferred - Exam Additional comments: no suprapubic tenderness - Back Exam Back exam: NORMAL INSPECTION. absent: CVA tenderness (L), CVA tenderness (R) - Neurological Exam Neurological exam: Alert, CN II-XII Intact, Oriented x3 - Psychiatric Exam Psychiatric exam: Normal Affect, Normal Mood - Skin Skin Exam: Dry, Intact, Normal Color, Warm Results - Vital Signs Recent Vital Signs: Last Vital Signs Temp 98.9 F 08/24/17 16:27 Pulse 82 08/24/17 20:34 Resp 16 08/24/17 20:34 BP 142/87 08/24/17 20:34 Pulse Ox 99 08/24/17 20:34 - Labs Result Diagrams: 08/24/17 16:39 08/24/17 16:39 Labs: Laboratory Results - last 24 hr 08/24/17 08/24/17 08/24/17 16:39 16:39 16:39 WBC 10.0 D RBC 5.10 Hgb 16.0 Hct 45.8 MCV 89.8 MCH 31.4 MCHC 34.9 RDW 12.5 Plt Count 210 MPV 9.6 Gran % 79.0 H Lymph % (Auto) 15.0 L [place] % (Auto) 5.6 Eos % (Auto) 0.2 L Baso % (Auto) 0.2 Gran # 7.92 H Lymph # (Auto) 1.5 [place] # (Auto) 0.6 Eos # (Auto) 0.0 Baso # (Auto) 0.02 pO2 30 VBG pH 7.33 VBG pCO2 57.0 VBG HCO3 30.1 H VBG Total CO2 31.8 H VBG O2 Sat (Calc) 61.5 VBG Base Excess 2.8 H VBG Potassium 4.0 Sodium 139.0 144 Chloride 107.0 105 Glucose 93 Lactate 0.7 FiO2 21.0 Potassium 4.1 Carbon Dioxide 28 Anion Gap 14 BUN 13 Creatinine 1.2 Est GFR ( Amer) 59 Est GFR (Non-Af Amer) 48 Random Glucose 94 Calcium 9.6 Magnesium 2.0 Total Bilirubin 0.8 AST 20 ALT 25 Alkaline Phosphatase 61 Total Protein 8.1 Albumin 4.5 Globulin 3.6 Albumin/Globulin Ratio 1.3 Lipase 54 Venous Blood Potassium 4.0 Urine Color Urine Appearance Urine pH Ur Specific [place] Urine Protein Urine Glucose (UA) Urine Ketones Urine Blood Urine Nitrate Urine Bilirubin Urine Urobilinogen Ur Leukocyte Esterase Urine RBC Urine WBC Ur Epithelial Cells Urine Bacteria 08/24/17 18:49 WBC RBC Hgb Hct MCV MCH MCHC RDW Plt Count MPV Gran % Lymph % (Auto) [place] % (Auto) Eos % (Auto) Baso % (Auto) Gran # Lymph # (Auto) [place] # (Auto) Eos # (Auto) Baso # (Auto) pO2 VBG pH VBG pCO2 VBG HCO3 VBG Total CO2 VBG O2 Sat (Calc) VBG Base Excess VBG Potassium Sodium Chloride Glucose Lactate FiO2 Potassium Carbon Dioxide Anion Gap BUN Creatinine Est GFR ( Amer) Est GFR (Non-Af Amer) Random Glucose Calcium Magnesium Total Bilirubin AST ALT Alkaline Phosphatase Total Protein Albumin Globulin Albumin/Globulin Ratio Lipase Venous Blood Potassium Urine Color Yellow Urine Appearance Sl cloudy Urine pH 7.0 Ur Specific [place] 1.020 Urine Protein 30 H Urine Glucose (UA) Negative Urine Ketones Trace H Urine Blood Trace-intact H Urine Nitrate Negative Urine Bilirubin Negative Urine Urobilinogen 0.2 Ur Leukocyte Esterase Negative Urine RBC 0 - 2 Urine WBC 0 - 2 Ur Epithelial Cells 6 - 8 Urine Bacteria Trace Assessment & Plan - Assessment and Plan (Free Text) Assessment: 46 year old female with a past medical history of asthma, hypertension, diverticular disease, allergic to Penicillin and gastric sleeve who presents with nausea, left lower quandrant abdominal pain, mucoid diarrhea, and reported fever. CT scan showed findings consistent with diverticulitis without abscess. Plan: 1) Diverticulitis - CT of abdomen/pelvis read as findings most compatible with acute or subacute left colonic diverticulitis though other etiologies are possible. Diffuse thickening seen through this segment of large bowel into the sigmoid colon and follow-up colonoscopy is advised following therapy. Trace microperforation is suggested but there is no abscess, ascites or prominent free intraperitoneal gas. - Ciprofloxacin 400 q12h [facility] - Metronidazole 500 mg q8h [facility]ANY - NPO - Zofran 4 mg q6h for nausea - Tylenol 650 q6h PRn for fever - Toradol 30 mg q8h PRN for moderate pain - Morphine 2 mg q4h PRN for severe pain - 1/2 NS with D5 100 ml/hr - GI consulted, Dr. Martell 2) GI/DVT prophylaxis - Pepcid - Lovenox 40 SC Case reviewed and discussed with attending physician, Dr. Mejia - Date & Time Date: 08/24/17 Time: 22:15 <Nba Mejia - Last Filed: 08/25/17 06:45> Results - Vital Signs Recent Vital Signs: Last Vital Signs Temp 100.9 F H 08/24/17 23:22 Pulse 82 08/24/17 22:15 Resp 16 08/24/17 22:15 BP 142/87 08/24/17 22:15 Pulse Ox 99 08/24/17 22:15 - Labs Result Diagrams: 08/24/17 16:39 08/25/17 05:30 Labs: Laboratory Results - last 24 hr 08/25/17 05:30 Carbon Dioxide 26 Creatinine 1.5 H Est GFR ( Amer) 45 Est GFR (Non-Af Amer) 37 Albumin 3.7 Attending/Attestation - Attestation I have personally seen and examined this patient.: Yes I have fully participated in the care of the patient.: Yes I have reviewed all pertinent clinical information: Yes Notes (Text): 08/25/17 06:44 Patient was seen when she was in bed # 798-02. Agree with history, physical examination, assessment and plan.
[2017-08-24] MEDS ORDERED: Ciprofloxacin 400mg/200ml D5W 400 MG/200 ML BAG IVPB SCH (22:00)
[2017-08-24] MEDS: Morphine 4 mg/ml ISec IVP PRN (22:37)
[2017-08-24] MEDS: metroNIDAZOLE IV 500 mg/100 ml 500 MG/100 ML BAG IVPB SCH (22:39)
[2017-08-25] MEDS: Morphine 4 mg/ml ISec IVP PRN ×5 (04:53→20:16)
[2017-08-25] MEDS: metroNIDAZOLE IV 500 mg/100 ml 500 MG/100 ML BAG IVPB SCH ×3 (05:16→21:14)
[2017-08-25 06:29] LABS: BASO # 0.01 K/mm3 (0.0-2.0); BASO % 0.1 % (0.0-3.0); EOS % 0.1 % (1.5-5.0); GRAN # 7.14 (1.4-6.5); GRAN % 71.9 % (50.0-68.0); LYMPH # 2.1 (1.2-3.4); LYMPH % 21.4 % (22.0-35.0); MEAN CELL VOLUME 90.5 fl (80.0-105.0); MEAN CORPUSCULAR HEMOGLOBIN 30.6 pg (25.0-35.0); MEAN CORPUSCULAR HGB CONC 33.8 g/dl (31.0-37.0); MEAN PLATELET VOLUME 9.9 fl (7.0-11.0); MONO # 0.6 (0.1-0.6); MONO % 6.5 % (1.0-6.0); RBC 4.41 10^6/uL (3.5-6.1); RED CELL DISTRIBUTION WIDTH 12.7 % (11.5-14.5); WHITE BLOOD COUNT 9.9 10^3/ul (4.5-11.0)
[2017-08-25 06:38] LABS: ALBUMIN 3.7 g/dL (3.0-4.8)
[2017-08-25 07:11] LABS: HEMOGLOBIN 13.5 g/dL (12.0-16.0)
[2017-08-25 07:30] LABS: CALCIUM 8.9 mg/dL (8.4-10.5)
[2017-08-25 07:53] LABS: ALB/GLOB RATIO 1.2 (1.1-1.8)
[2017-08-25] MEDS ORDERED: Dextrose 5%/0.45% NS 1,000 ML IV SCH (08:39)
[2017-08-25] MEDS: Enoxaparin 40 mg Syringe SC SCH (09:39)
[2017-08-25] MEDS: Dextrose 5%/0.45% NS 1,000 ML IV SCH ×2 (09:39→23:55)
--- NOTE | 2017-08-25 10:41 | CP.PCM.CON ---
<Dasia Zhang - Last Filed: 08/25/17 11:10> History of Present Illness - History of Present Illness History of Present Illness: PGY-[address] Martell's service 46 year old female with a past medical history of asthma, hypertension, diverticulosis, and gastric sleeve 10/2016 who presented with crampy LLQ abdominal pain. Patient states that the pain started about 2-3 days ago. She also reports concurrent fever, nausea, and mucoid diarrhea. She reports taking Motrin and Tylenol without relief. She states that pain is constant however becomes razor sharp pain when she defecates. She reports decrease in appetite and porr oral intake for past 2-3 days. She denies any blood per rectum, hematemesis, melena. Patient states that she had similar symptoms 2-3 years ago. At that time she states that she has EGD which showed gastritis and duodenitis. She states that she had colonoscopy at [facility] at that time and she was told she had a hole. She states that she modified he diet and only eats small portions. She denies follow up with GI. She denies any recent sick contacts, eating anything out of the ordinary, chest pain, diaphoresis, or palpitations. She reports her last attack of diverticulitis was a year ago that required in patient admission. 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, 20 pack year of smoking tobacco, drinks alcohol occasionally, denies illicit drug use Review of Systems - Review of Systems All systems: reviewed and no additional remarkable complaints except Past Patient History - Infectious Disease Hx of Infectious Diseases: None - Tetanus Immunizations Tetanus Immunization: Unknown - Past Social History Smoking Status: Current Some Days Smoker - CARDIAC Hx Cardiac Disorders: Yes Hx Hypertension: Yes - PULMONARY Hx Respiratory Disorders: Yes Hx Asthma: Yes Hx Sleep Apnea: Yes - NEUROLOGICAL Hx Neurological Disorder: No - HEENT Hx HEENT Problems: No - RENAL Hx Chronic Kidney Disease: No - ENDOCRINE/METABOLIC Hx Endocrine Disorders: No - HEMATOLOGICAL/ONCOLOGICAL Hx Blood Disorders: No - INTEGUMENTARY Hx Dermatological Problems: No - MUSCULOSKELETAL/RHEUMATOLOGICAL Hx Musculoskeletal Disorders: No - GASTROINTESTINAL Hx Gastrointestinal Disorders: Yes Hx Diverticulitis: Yes - GENITOURINARY/GYNECOLOGICAL Hx Genitourinary Disorders: No - PSYCHIATRIC Hx Psychophysiologic Disorder: No Hx Substance Use: No - SURGICAL HISTORY Hx Gastric Bypass Surgery: Yes (gastric sleeve) Other/Comment: Left breast lymph node removed - ANESTHESIA Hx Anesthesia: Yes Hx Anesthesia Reactions: No Hx Malignant Hyperthermia: No Meds Allergies/Adverse Reactions: Allergies Allergy/AdvReac Type Severity Reaction Status Date / Time Penicillins Allergy ANAPHYLAXIS Verified 07/11/17 19:31 - Medications Medications: Current Medications Acetaminophen (Tylenol 325mg Tab) 650 mg PO Q6H PRN PRN Reason: Fever >100.4 F Last Admin: 08/24/17 23:22 Dose: 650 mg Enoxaparin Sodium (Lovenox) 40 mg SC DAILY [facility] PRN Reason: Protocol Last Admin: 08/25/17 09:39 Dose: 40 mg Famotidine (Pepcid) 20 mg IVP DAILY [facility] Last Admin: 08/25/17 09:39 Dose: 20 mg Metronidazole (Flagyl) 500 mg in 100 mls @ 100 mls/hr IVPB Q8 [facility] PRN Reason: Protocol Last Admin: 08/25/17 05:16 Dose: 100 mls/hr Dextrose/Sodium Chloride (Dextrose 5%/0.45% Ns 1000 Ml) 1,000 mls @ 150 mls/hr IV .Q6H40M [facility] Last Admin: 08/25/17 09:39 Dose: 150 mls/hr Ketorolac Tromethamine (Toradol) 30 mg IVP Q8H PRN PRN Reason: Pain, moderate (4-7) Last Admin: 08/25/17 09:37 Dose: 30 mg Morphine Sulfate (Morphine) 2 mg IVP Q4H PRN PRN Reason: Pain, severe (8-10) Last Admin: 08/25/17 08:33 Dose: 2 mg Ondansetron HCl (Zofran Inj) 4 mg IVP Q6H PRN PRN Reason: Nausea/Vomiting Physical Exam - Constitutional Appears: No Acute Distress - Head Exam Head Exam: ATRAUMATIC, NORMOCEPHALIC - Eye Exam Eye Exam: EOMI, Normal appearance - ENT Exam ENT Exam: Mucous Membranes Dry, Mucous Membranes Moist - Respiratory Exam Respiratory Exam: NORMAL BREATHING PATTERN. absent: Rales, Rhonchi, Wheezes, Respiratory Distress - Cardiovascular Exam Cardiovascular Exam: REGULAR RHYTHM, +S1, +S2. absent: Bradycardia, Tachycardia , Systolic Murmur - GI/Abdominal Exam GI & Abdominal Exam: Normal Bowel Sounds, Soft, Tenderness. absent: Distended, Firm, Guarding, Hernia - Extremities Exam Extremities exam: Positive for: normal inspection. Negative for: pedal edema, tenderness - Neurological Exam Neurological exam: Alert, Oriented x3 Results - Vital Signs Recent Vital Signs: Last Vital Signs Temp 98.3 F 08/25/17 07:38 Pulse 78 08/25/17 07:38 Resp 19 08/25/17 07:38 BP 127/84 08/25/17 07:38 Pulse Ox 93 L 08/25/17 07:38 - Labs Result Diagrams: 08/25/17 05:30 08/25/17 05:30 Labs: Laboratory Results - last 24 hr 08/25/17 08/25/17 05:30 05:30 WBC 9.9 RBC 4.41 Hgb 13.5 D Hct 39.9 MCV 90.5 MCH 30.6 MCHC 33.8 RDW 12.7 Plt Count 205 MPV 9.9 Gran % 71.9 H Lymph % (Auto) 21.4 L [place] % (Auto) 6.5 H Eos % (Auto) 0.1 L Baso % (Auto) 0.1 Gran # 7.14 H Lymph # (Auto) 2.1 [place] # (Auto) 0.6 Eos # (Auto) 0.0 Baso # (Auto) 0.01 Sodium 140 Potassium 3.8 Chloride 105 Carbon Dioxide 26 Anion Gap 13 BUN 16 Creatinine 1.5 H Est GFR ( Amer) 45 Est GFR (Non-Af Amer) 37 Random Glucose 93 Calcium 8.9 Total Bilirubin 1.0 AST 13 L D ALT 22 Alkaline Phosphatase 49 Total Protein 6.8 Albumin 3.7 Globulin 3.1 Albumin/Globulin Ratio 1.2 Assessment & Plan - Assessment and Plan (Free Text) Assessment: 46 year old female with a past medical history of asthma, hypertension, diverticulosis, and gastric sleeve 10/2016 who presented with crampy LLQ abdominal pain differentia includes diverticulitis v ischemic colitis, found to have mirco perforation on imaging. Plan: - CT abd/pelvis showed Left colonic diverticulitis diffuse thickening extending into sigmoid, mirco perforation - patient had upper endoscopy in 2016 showed gastritis and duodenitis - patient will need repeat endoscopy outpatient - NPO - continue to monitor LFT's case seen and discussed with Dr. Coyne <Pacheco Martell V - Last Filed: 08/25/17 23:03> Meds - Medications Medications: Current Medications Acetaminophen (Tylenol 325mg Tab) 650 mg PO Q6H PRN PRN Reason: Fever >100.4 F Last Admin: 08/25/17 16:29 Dose: 650 mg Enoxaparin Sodium (Lovenox) 40 mg SC DAILY [facility] PRN Reason: Protocol Last Admin: 08/25/17 09:39 Dose: 40 mg Famotidine (Pepcid) 20 mg IVP DAILY [facility] Last Admin: 08/25/17 09:39 Dose: 20 mg Metronidazole (Flagyl) 500 mg in 100 mls @ 100 mls/hr IVPB Q8 [facility] PRN Reason: Protocol Last Admin: 08/25/17 21:14 Dose: 100 mls/hr Dextrose/Sodium Chloride (Dextrose 5%/0.45% Ns 1000 Ml) 1,000 mls @ 150 mls/hr IV .Q6H40M [facility] Last Admin: 08/25/17 09:39 Dose: 150 mls/hr Levofloxacin/Dextrose (Levaquin 750mg) 750 mg in 150 mls @ 100 mls/hr IVPB Q48H [facility] PRN Reason: Protocol Last Admin: 08/25/17 12:37 Dose: 100 mls/hr Ketorolac Tromethamine (Toradol) 15 mg IVP Q8H PRN PRN Reason: Pain, moderate (4-7) Last Admin: 08/25/17 15:01 Dose: 15 mg Morphine Sulfate (Morphine) 2 mg IVP Q4H PRN PRN Reason: Pain, severe (8-10) Last Admin: 08/25/17 20:16 Dose: 2 mg Ondansetron HCl (Zofran Inj) 4 mg IVP Q6H PRN PRN Reason: Nausea/Vomiting Results - Vital Signs Recent Vital Signs: Last Vital Signs Temp 100.2 F H 08/25/17 17:40 Pulse 115 H 08/25/17 17:40 Resp 19 08/25/17 17:40 BP 131/74 08/25/17 17:40 Pulse Ox 94 L 08/25/17 17:40 - Labs Result Diagrams: 08/25/17 05:30 08/25/17 05:30 Labs: Laboratory Results - last 24 hr 08/25/17 08/25/17 05:30 05:30 WBC 9.9 RBC 4.41 Hgb 13.5 D Hct 39.9 MCV 90.5 MCH 30.6 MCHC 33.8 RDW 12.7 Plt Count 205 MPV 9.9 Gran % 71.9 H Lymph % (Auto) 21.4 L [place] % (Auto) 6.5 H Eos % (Auto) 0.1 L Baso % (Auto) 0.1 Gran # 7.14 H Lymph # (Auto) 2.1 [place] # (Auto) 0.6 Eos # (Auto) 0.0 Baso # (Auto) 0.01 Sodium 140 Potassium 3.8 Chloride 105 Carbon Dioxide 26 Anion Gap 13 BUN 16 Creatinine 1.5 H Est GFR ( Amer) 45 Est GFR (Non-Af Amer) 37 Random Glucose 93 Calcium 8.9 Total Bilirubin 1.0 AST 13 L D ALT 22 Alkaline Phosphatase 49 Total Protein 6.8 Albumin 3.7 Globulin 3.1 Albumin/Globulin Ratio 1.2 Attending/Attestation - Attestation I have personally seen and examined this patient.: Yes I have fully participated in the care of the patient.: Yes I have reviewed all pertinent clinical information: Yes Notes (Text): This is an addendum to GI progress report dictated by the Crossing Guard.The patient was seen and examined earlier. Medical records, lab studies, imagings were reviewed. Last 24 hours events reviewed. Agreed with the above treatment plan as outlined in Crossing Guard 's notes the with the addition of the following 08/25/17 23:03
--- NOTE | 2017-08-25 11:39 | CP.PCM.PN ---
<Ander Calvo - Last Filed: 08/25/17 12:29> Subjective - Date & Time of Evaluation Date of Evaluation: 08/25/17 Time of Evaluation: 07:45 - Subjective Subjective: Medicine Note for Dr. Thomason Patient seen and examined at bedside. No acute event overnihgt. Patient reports mild abdominal pain. She states that pain medication is controlling her pain. She denies fever/chills, nausea/vomiting, or diarrhea. She is currently NPO. She reports that this is her third episode of diveticulitis in her life. She had EGD/colonoscopy performed one year ago. Objective - Vital Signs/Intake and Output Vital Signs (last 24 hours): Temp Pulse Resp BP Pulse Ox 98.3 F 78 19 127/84 93 L 08/25/17 07:38 08/25/17 07:38 08/25/17 07:38 08/25/17 07:38 08/25/17 07:38 Intake and Output: 08/25/17 08/25/17 06:59 18:59 Intake Total 1080 Balance 1080 - Medications Medications: Current Medications Acetaminophen (Tylenol 325mg Tab) 650 mg PO Q6H PRN PRN Reason: Fever >100.4 F Last Admin: 08/24/17 23:22 Dose: 650 mg Enoxaparin Sodium (Lovenox) 40 mg SC DAILY [facility] PRN Reason: Protocol Last Admin: 08/25/17 09:39 Dose: 40 mg Famotidine (Pepcid) 20 mg IVP DAILY [facility] Last Admin: 08/25/17 09:39 Dose: 20 mg Metronidazole (Flagyl) 500 mg in 100 mls @ 100 mls/hr IVPB Q8 [facility] PRN Reason: Protocol Last Admin: 08/25/17 05:16 Dose: 100 mls/hr Dextrose/Sodium Chloride (Dextrose 5%/0.45% Ns 1000 Ml) 1,000 mls @ 150 mls/hr IV .Q6H40M [facility] Last Admin: 08/25/17 09:39 Dose: 150 mls/hr Ketorolac Tromethamine (Toradol) 30 mg IVP Q8H PRN PRN Reason: Pain, moderate (4-7) Last Admin: 08/25/17 09:37 Dose: 30 mg Morphine Sulfate (Morphine) 2 mg IVP Q4H PRN PRN Reason: Pain, severe (8-10) Last Admin: 08/25/17 08:33 Dose: 2 mg Ondansetron HCl (Zofran Inj) 4 mg IVP Q6H PRN PRN Reason: Nausea/Vomiting - Labs Labs: 08/25/17 05:30 08/25/17 05:30 - Constitutional Appears: Non-toxic, No Acute Distress - Head Exam Head Exam: ATRAUMATIC, NORMOCEPHALIC - Eye Exam Eye Exam: EOMI, Normal appearance Pupil Exam: PERRL - ENT Exam ENT Exam: Mucous Membranes Moist - Respiratory Exam Respiratory Exam: Clear to Ausculation Bilateral, NORMAL BREATHING PATTERN - Cardiovascular Exam Cardiovascular Exam: REGULAR RHYTHM, +S1, +S2 - GI/Abdominal Exam GI & Abdominal Exam: Soft, Tenderness (LLQ), Normal Bowel Sounds. absent: Distended, Firm, Guarding, Rigid - Extremities Exam Extremities Exam: Normal Capillary Refill - Back Exam Back Exam: absent: CVA tenderness (L), CVA tenderness (R) - Neurological Exam Neurological Exam: Alert, Awake, Oriented x3 - Psychiatric Exam Psychiatric exam: Normal Affect, Normal Mood - Skin Skin Exam: Dry, Intact, Normal Color, Warm Assessment and Plan - Assessment and Plan (Free Text) Plan: 46 year old female with a past medical history of asthma, hypertension, diverticulosis, recurrent diverticulitis and gastric sleeve who presents with umcomplicated diverticulitis. CT scan reveals with diverticulitis without abscess. Plan: 1) Diverticulitis - CT of abdomen/pelvis read as findings most compatible with acute or subacute left colonic diverticulitis though other etiologies are possible. Diffuse thickening seen through this segment of large bowel into the sigmoid colon and follow-up colonoscopy is advised following therapy. Trace microperforation is suggested but there is no abscess, ascites or prominent free intraperitoneal gas. - Levaquin 750 mg IVPB daily - Metronidazole 500 mg q8h [facility] - NPO - Zofran 4 mg q6h PRN for nausea - Tylenol 650 q6h PRN for fever - Toradol 30 mg q8h PRN for moderate pain - Morphine 2 mg q4h PRN for severe pain - D5 1/2 NS 150 ml/hr - GI consult, Dr. Martell 2) GI/DVT prophylaxis - Pepcid - Lovenox 40 SC daily Case reviewed and discussed with Dr. Paddy Calvo PGY1 <Caesar Thomason B - Last Filed: 08/25/17 16:26> Objective - Vital Signs/Intake and Output Vital Signs (last 24 hours): Temp Pulse Resp BP Pulse Ox 98.3 F 78 19 127/84 93 L 08/25/17 07:38 08/25/17 07:38 08/25/17 07:38 08/25/17 07:38 08/25/17 07:38 Intake and Output: 08/25/17 08/25/17 06:59 18:59 Intake Total 1080 0 Balance 1080 0 - Medications Medications: Current Medications Acetaminophen (Tylenol 325mg Tab) 650 mg PO Q6H PRN PRN Reason: Fever >100.4 F Last Admin: 08/24/17 23:22 Dose: 650 mg Enoxaparin Sodium (Lovenox) 40 mg SC DAILY [facility] PRN Reason: Protocol Last Admin: 08/25/17 09:39 Dose: 40 mg Famotidine (Pepcid) 20 mg IVP DAILY [facility] Last Admin: 08/25/17 09:39 Dose: 20 mg Metronidazole (Flagyl) 500 mg in 100 mls @ 100 mls/hr IVPB Q8 [facility] PRN Reason: Protocol Last Admin: 08/25/17 14:56 Dose: 100 mls/hr Dextrose/Sodium Chloride (Dextrose 5%/0.45% Ns 1000 Ml) 1,000 mls @ 150 mls/hr IV .Q6H40M [facility] Last Admin: 08/25/17 09:39 Dose: 150 mls/hr Levofloxacin/Dextrose (Levaquin 750mg) 750 mg in 150 mls @ 100 mls/hr IVPB Q48H [facility] PRN Reason: Protocol Last Admin: 08/25/17 12:37 Dose: 100 mls/hr Ketorolac Tromethamine (Toradol) 15 mg IVP Q8H PRN PRN Reason: Pain, moderate (4-7) Last Admin: 08/25/17 15:01 Dose: 15 mg Morphine Sulfate (Morphine) 2 mg IVP Q4H PRN PRN Reason: Pain, severe (8-10) Last Admin: 08/25/17 12:42 Dose: 2 mg Ondansetron HCl (Zofran Inj) 4 mg IVP Q6H PRN PRN Reason: Nausea/Vomiting - Labs Labs: 08/25/17 05:30 08/25/17 05:30 Attending/Attestation - Attestation I have personally seen and examined this patient.: Yes I have fully participated in the care of the patient.: Yes I have reviewed all pertinent clinical information, including history, physical exam and plan: Yes Notes (Text): I have seen and examined the patient at bedside. Agree with the above note with the following additions/ exceptions: Briefly this is 46 year old female with history of asthma, hypertension, diverticulosis, recurrent diverticulitis and gastric sleeve who presents with acute diverticulitis. CT scan reveals diverticulitis without abscess with microperforation. GI on board. Surgery consult pending. Start levaquin and continue flagyl. 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
[2017-08-25] MEDS ORDERED: levoFLOXacin 750 mg in D5W 750 MG/150 ML BAG IVPB SCH (11:45)
--- NOTE | 2017-08-25 23:23 | CP.PCM.PN ---
Subjective - Date & Time of Evaluation Date of Evaluation: 08/25/17 Time of Evaluation: 23:22 - Subjective Subjective: # 22 angiocath was inserted in left distal arm. Objective - Vital Signs/Intake and Output Vital Signs (last 24 hours): Temp Pulse Resp BP Pulse Ox 100.2 F H 115 H 19 131/74 94 L 08/25/17 17:40 08/25/17 17:40 08/25/17 17:40 08/25/17 17:40 08/25/17 17:40 Intake and Output: 08/25/17 08/26/17 18:59 06:59 Intake Total 0 Balance 0 - Medications Medications: Current Medications Acetaminophen (Tylenol 325mg Tab) 650 mg PO Q6H PRN PRN Reason: Fever >100.4 F Last Admin: 08/25/17 16:29 Dose: 650 mg Enoxaparin Sodium (Lovenox) 40 mg SC DAILY [facility] PRN Reason: Protocol Last Admin: 08/25/17 09:39 Dose: 40 mg Famotidine (Pepcid) 20 mg IVP DAILY [facility] Last Admin: 08/25/17 09:39 Dose: 20 mg Metronidazole (Flagyl) 500 mg in 100 mls @ 100 mls/hr IVPB Q8 [facility] PRN Reason: Protocol Last Admin: 08/25/17 21:14 Dose: 100 mls/hr Dextrose/Sodium Chloride (Dextrose 5%/0.45% Ns 1000 Ml) 1,000 mls @ 150 mls/hr IV .Q6H40M [facility] Last Admin: 08/25/17 09:39 Dose: 150 mls/hr Levofloxacin/Dextrose (Levaquin 750mg) 750 mg in 150 mls @ 100 mls/hr IVPB Q48H [facility] PRN Reason: Protocol Last Admin: 08/25/17 12:37 Dose: 100 mls/hr Ketorolac Tromethamine (Toradol) 15 mg IVP Q8H PRN PRN Reason: Pain, moderate (4-7) Last Admin: 08/25/17 15:01 Dose: 15 mg Morphine Sulfate (Morphine) 2 mg IVP Q4H PRN PRN Reason: Pain, severe (8-10) Last Admin: 08/25/17 20:16 Dose: 2 mg Ondansetron HCl (Zofran Inj) 4 mg IVP Q6H PRN PRN Reason: Nausea/Vomiting - Labs Labs: 08/25/17 05:30 08/25/17 05:30
[2017-08-26] MEDS: Morphine 4 mg/ml ISec IVP PRN ×4 (02:04→13:49)
[2017-08-26] MEDS: metroNIDAZOLE IV 500 mg/100 ml 500 MG/100 ML BAG IVPB SCH ×3 (05:21→21:10)
[2017-08-26] MEDS: Dextrose 5%/0.45% NS 1,000 ML IV SCH ×3 (06:10→18:52)
[2017-08-26 06:33] LABS: BASO # 0.01 K/mm3 (0.0-2.0); BASO % 0.1 % (0.0-3.0); EOS # 0.1 (0.0-0.7); EOS % 0.4 % (1.5-5.0); GRAN # 10.55 (1.4-6.5); GRAN % 79.1 % (50.0-68.0); HEMOGLOBIN 12.9 g/dL (12.0-16.0); LYMPH # 1.8 (1.2-3.4); LYMPH % 13.3 % (22.0-35.0); MEAN CORPUSCULAR HEMOGLOBIN 30.8 pg (25.0-35.0); MEAN CORPUSCULAR HGB CONC 34.2 g/dl (31.0-37.0); MEAN PLATELET VOLUME 9.6 fl (7.0-11.0); MONO % 7.1 % (1.0-6.0); RBC 4.19 10^6/uL (3.5-6.1); RED CELL DISTRIBUTION WIDTH 12.3 % (11.5-14.5); WHITE BLOOD COUNT 13.3 10^3/ul (4.5-11.0)
--- NOTE | 2017-08-26 06:47 | CP.PCM.CON ---
<Ander Calvo - Last Filed: 08/26/17 07:43> History of Present Illness - History of Present Illness History of Present Illness: This note is a late entry patient was seen and examined earlier in the evening General Surgery Consult for Dr. Whitlock Reason for consult: recurrent diverticulitis 46 F with PMH that includes astham, HTN, diverticulitis, diverticulosis, s/p gastric sleeve 2016 presents to [facility] for left sideed abdominal pain. CT abd/ pelvis revealed diverticulitis. Patient has had the abdominal pain for past 2-3 days. She states that she has had a total of three episodes of diverticulitis now with the most recent occurting about 1 year ago. At that time, patient had egd/colonoscopy 6 weeks after attack. There was no abnormalities noted. Patient has had intermittent low grade fevers while in patient. Her WBC on admission was around 10 now increased to 13.3. Patient states pain has improved. She rates it as mild. She describes pain as constant and sharp located on left side of abdomen. Movement and palpation aggravates her pain while resting helps. Denies chest pain, SOB, nausea/vomiting, diarrhea, incontinence, urinary symptoms. PMH: as above Meds: as per EMR Allergy: PCN PSH: gastric sleeve, EGD, colonoscopy FH: non-contributory Social: denies tobacco/Etoh/illicit drug use Review of Systems - Review of Systems All systems: reviewed and no additional remarkable complaints except (as per HPI ) Past Patient History - Infectious Disease Hx of Infectious Diseases: None - Tetanus Immunizations Tetanus Immunization: Unknown - Past Social History Smoking Status: Current Some Days Smoker - CARDIAC Hx Cardiac Disorders: Yes Hx Hypertension: Yes - PULMONARY Hx Respiratory Disorders: Yes Hx Asthma: Yes Hx Sleep Apnea: Yes - NEUROLOGICAL Hx Neurological Disorder: No - HEENT Hx HEENT Problems: No - RENAL Hx Chronic Kidney Disease: No - ENDOCRINE/METABOLIC Hx Endocrine Disorders: No - HEMATOLOGICAL/ONCOLOGICAL Hx Blood Disorders: No - INTEGUMENTARY Hx Dermatological Problems: No - MUSCULOSKELETAL/RHEUMATOLOGICAL Hx Musculoskeletal Disorders: No - GASTROINTESTINAL Hx Gastrointestinal Disorders: Yes Hx Diverticulitis: Yes - GENITOURINARY/GYNECOLOGICAL Hx Genitourinary Disorders: No - PSYCHIATRIC Hx Psychophysiologic Disorder: No Hx Substance Use: No - SURGICAL HISTORY Hx Gastric Bypass Surgery: Yes (gastric sleeve) Other/Comment: Left breast lymph node removed - ANESTHESIA Hx Anesthesia: Yes Hx Anesthesia Reactions: No Hx Malignant Hyperthermia: No Meds Allergies/Adverse Reactions: Allergies Allergy/AdvReac Type Severity Reaction Status Date / Time Penicillins Allergy ANAPHYLAXIS Verified 07/11/17 19:31 - Medications Medications: Current Medications Acetaminophen (Tylenol 325mg Tab) 650 mg PO Q6H PRN PRN Reason: Fever >100.4 F Last Admin: 08/25/17 16:29 Dose: 650 mg Enoxaparin Sodium (Lovenox) 40 mg SC DAILY [facility] PRN Reason: Protocol Last Admin: 08/25/17 09:39 Dose: 40 mg Famotidine (Pepcid) 20 mg IVP DAILY [facility] Last Admin: 08/25/17 09:39 Dose: 20 mg Metronidazole (Flagyl) 500 mg in 100 mls @ 100 mls/hr IVPB Q8 [facility] PRN Reason: Protocol Last Admin: 08/26/17 05:21 Dose: 100 mls/hr Dextrose/Sodium Chloride (Dextrose 5%/0.45% Ns 1000 Ml) 1,000 mls @ 150 mls/hr IV .Q6H40M [facility] Last Admin: 08/26/17 06:10 Dose: 150 mls/hr Levofloxacin/Dextrose (Levaquin 750mg) 750 mg in 150 mls @ 100 mls/hr IVPB Q48H [facility] PRN Reason: Protocol Last Admin: 08/25/17 12:37 Dose: 100 mls/hr Ketorolac Tromethamine (Toradol) 15 mg IVP Q8H PRN PRN Reason: Pain, moderate (4-7) Last Admin: 08/25/17 23:53 Dose: 15 mg Morphine Sulfate (Morphine) 2 mg IVP Q4H PRN PRN Reason: Pain, severe (8-10) Last Admin: 08/26/17 06:10 Dose: 2 mg Ondansetron HCl (Zofran Inj) 4 mg IVP Q6H PRN PRN Reason: Nausea/Vomiting Last Admin: 08/25/17 23:53 Dose: 4 mg Physical Exam - Constitutional Appears: No Acute Distress - Head Exam Head Exam: ATRAUMATIC, NORMOCEPHALIC - Eye Exam Eye Exam: EOMI, Normal appearance Pupil Exam: PERRL - ENT Exam ENT Exam: Mucous Membranes Moist - Respiratory Exam Respiratory Exam: Clear to Auscultation Bilateral, NORMAL BREATHING PATTERN - Cardiovascular Exam Cardiovascular Exam: Tachycardia - GI/Abdominal Exam GI & Abdominal Exam: Normal Bowel Sounds, Soft, Tenderness (left sided). absent : Distended, Firm, Guarding, Rebound, Rigid - Extremities Exam Extremities exam: Positive for: normal capillary refill, pedal pulses present - Back Exam Back exam: absent: CVA tenderness (L), CVA tenderness (R) - Neurological Exam Neurological exam: Alert, CN II-XII Intact, Oriented x3 - Psychiatric Exam Psychiatric exam: Normal Affect, Normal Mood - Skin Skin Exam: Dry, Intact, Normal Color, Warm Results - Vital Signs Recent Vital Signs: Last Vital Signs Temp 100.2 F H 08/25/17 17:40 Pulse 115 H 08/25/17 17:40 Resp 19 08/25/17 17:40 BP 131/74 08/25/17 17:40 Pulse Ox 94 L 08/25/17 17:40 - Labs Result Diagrams: 08/26/17 06:00 08/26/17 06:00 Labs: Laboratory Results - last 24 hr 08/25/17 08/25/17 05:30 05:30 WBC 9.9 RBC 4.41 Hgb 13.5 D Hct 39.9 MCV 90.5 MCH 30.6 MCHC 33.8 RDW 12.7 Plt Count 205 MPV 9.9 Gran % 71.9 H Lymph % (Auto) 21.4 L [place] % (Auto) 6.5 H Eos % (Auto) 0.1 L Baso % (Auto) 0.1 Gran # 7.14 H Lymph # (Auto) 2.1 [place] # (Auto) 0.6 Eos # (Auto) 0.0 Baso # (Auto) 0.01 Sodium 140 Potassium 3.8 Chloride 105 Anion Gap 13 BUN 16 Random Glucose 93 Calcium 8.9 Total Bilirubin 1.0 AST 13 L D ALT 22 Alkaline Phosphatase 49 Total Protein 6.8 Globulin 3.1 Albumin/Globulin Ratio 1.2 Assessment & Plan - Assessment and Plan (Free Text) Assessment: 46F with acute diverticulitis Plan: -NPO -Continue IV antibiotics -Increase IV fluids -Analgesics/Anti-emetics PRN -serial abd exams -diet/lifestyle modification -Smoking cessation -Weight loss -Compliance with bariatric diet and exercise program -Increase fiber at home -Stool softners -Follow up as outpatient in Dr. Whitlock's [facility] for recurrent diverticulitis and possible elective surgery -No surgical intervention indicated at this time -Discussed with Dr. Kamlesh Calvo PGY1 <Albert Whitlock - Last Filed: 08/27/17 13:19> Meds - Medications Medications: Current Medications Acetaminophen (Tylenol 325mg Tab) 650 mg PO Q6H PRN PRN Reason: Fever >100.4 F Last Admin: 08/25/17 16:29 Dose: 650 mg Enoxaparin Sodium (Lovenox) 40 mg SC DAILY [facility] PRN Reason: Protocol Last Admin: 08/27/17 09:05 Dose: 40 mg Famotidine (Pepcid) 20 mg IVP DAILY [facility] Last Admin: 08/27/17 09:05 Dose: 20 mg Metronidazole (Flagyl) 500 mg in 100 mls @ 100 mls/hr IVPB Q8 [facility] PRN Reason: Protocol Last Admin: 08/27/17 05:19 Dose: 100 mls/hr Levofloxacin/Dextrose (Levaquin 750mg) 750 mg in 150 mls @ 100 mls/hr IVPB Q24H [facility] PRN Reason: Protocol Last Admin: 08/27/17 11:04 Dose: 100 mls/hr Dextrose/Sodium Chloride (Dextrose 5%/0.45% Ns 1000 Ml) 1,000 mls @ 200 mls/hr IV .Q5H [facility] Last Admin: 08/27/17 04:07 Dose: 200 mls/hr Morphine Sulfate (Morphine) 2 mg IVP Q3H PRN PRN Reason: Pain, severe (8-10) Last Admin: 08/27/17 11:05 Dose: 2 mg Ondansetron HCl (Zofran Inj) 4 mg IVP Q6H PRN PRN Reason: Nausea/Vomiting Last Admin: 08/26/17 12:19 Dose: 4 mg Results - Vital Signs Recent Vital Signs: Last Vital Signs Temp 99.1 F 08/27/17 06:00 Pulse 85 08/27/17 06:00 Resp 18 08/27/17 06:00 BP 126/74 08/27/17 06:00 Pulse Ox 94 L 08/27/17 06:00 - Labs Result Diagrams: 08/27/17 08:30 08/27/17 08:30 Labs: Laboratory Results - last 24 hr 08/27/17 08/27/17 08:30 08:30 WBC 6.5 D RBC 4.10 Hgb 12.4 Hct 36.6 MCV 89.3 MCH 30.2 MCHC 33.9 RDW 12.3 Plt Count 197 MPV 9.5 Gran % 66.2 Lymph % (Auto) 21.9 L [place] % (Auto) 7.7 H Eos % (Auto) 4.0 Baso % (Auto) 0.2 Gran # 4.33 Lymph # (Auto) 1.4 [place] # (Auto) 0.5 Eos # (Auto) 0.3 Baso # (Auto) 0.01 Sodium 141 Potassium 3.3 L Chloride 105 Carbon Dioxide 27 Anion Gap 13 BUN 10 Creatinine 1.0 Est GFR ( Amer) > 60 Est GFR (Non-Af Amer) 60 Random Glucose 102 Calcium 8.9 Total Bilirubin 0.5 AST 14 D ALT 16 Alkaline Phosphatase 53 Total Protein 6.5 Albumin 3.5 Globulin 3.1 Albumin/Globulin Ratio 1.1 Assessment & Plan - Assessment and Plan (Free Text) Plan: I personally saw and examined the patient at bedside with the resident and agree with the above assessment and plan. CT imges and report were personally reviewed. 46 F morbid obesity 9 months s/p lap sleeve gastrectomy (80 lbs weight loss since), presents with third episode of uncomplicated sigmoid diverticulitis. Continue supportive care, abx, IVF and advance diet slowly as pain and anorexia improve. Abx course for 7-10 days total (PO can be given on discharge) and patient can follow up to discuss elective sigmoid resection after more weight loss achieved. Patient counseled the severity of complications that may arise from recurrent attacks of diverticulitis including, fibrosis, stricture, and fistulization to other pelvic organs and the importance of smoking cessation, continued weight loss, adherence to post-bariatric surgery diet, continued exercise, appropriate follow-up with support groups and nutritional counseling. Avoid NSAIDs and smoking to prevent stricture, ulcers s/p sleeve. We will have her see me in clinic to re-establish bariatric care and follow up as well. - Date & Time Date: 08/26/17
[2017-08-26 07:15] LABS: ALB/GLOB RATIO 1.1 (1.1-1.8); ALBUMIN 3.4 g/dL (3.0-4.8); CALCIUM 8.7 mg/dL (8.4-10.5)
[2017-08-26] MEDS: Enoxaparin 40 mg Syringe SC SCH (09:45)
--- NOTE | 2017-08-26 10:21 | CP.PCM.PN ---
<Mary Yanez - Last Filed: 08/26/17 10:19> Subjective - Date & Time of Evaluation Date of Evaluation: 08/26/17 Time of Evaluation: 10:19 - Subjective Subjective: IM progress note for Dr. Gannon-Mary Yanez, PGY-1 Pt S & E at bedside at 0730 Pt reports continued LLQ & LUQ ab pain, not well controlled overnight. Admits to nausea, emesis x 2 (nb, biliuos), F & C overnight with insomina due to pain. Denies diarrhea, constipation, changes to urinary habits, other complaints. Objective - Vital Signs/Intake and Output Vital Signs (last 24 hours): Temp Pulse Resp BP Pulse Ox 99.9 F H 104 H 20 113/59 L 93 L 08/26/17 07:48 08/26/17 07:48 08/26/17 07:48 08/26/17 07:48 08/26/17 07:48 Intake and Output: 08/26/17 08/26/17 06:59 18:59 Intake Total 1800 Balance 1800 - Medications Medications: Current Medications Acetaminophen (Tylenol 325mg Tab) 650 mg PO Q6H PRN PRN Reason: Fever >100.4 F Last Admin: 08/25/17 16:29 Dose: 650 mg Enoxaparin Sodium (Lovenox) 40 mg SC DAILY [facility] PRN Reason: Protocol Last Admin: 08/26/17 09:45 Dose: 40 mg Famotidine (Pepcid) 20 mg IVP DAILY [facility] Last Admin: 08/26/17 09:46 Dose: 20 mg Metronidazole (Flagyl) 500 mg in 100 mls @ 100 mls/hr IVPB Q8 [facility] PRN Reason: Protocol Last Admin: 08/26/17 05:21 Dose: 100 mls/hr Dextrose/Sodium Chloride (Dextrose 5%/0.45% Ns 1000 Ml) 1,000 mls @ 150 mls/hr IV .Q6H40M [facility] Last Admin: 08/26/17 06:10 Dose: 150 mls/hr Levofloxacin/Dextrose (Levaquin 750mg) 750 mg in 150 mls @ 100 mls/hr IVPB Q24H [facility] PRN Reason: Protocol Ketorolac Tromethamine (Toradol) 15 mg IVP Q8H PRN PRN Reason: Pain, moderate (4-7) Last Admin: 08/25/17 23:53 Dose: 15 mg Morphine Sulfate (Morphine) 2 mg IVP Q4H PRN PRN Reason: Pain, severe (8-10) Last Admin: 08/26/17 09:46 Dose: 2 mg Ondansetron HCl (Zofran Inj) 4 mg IVP Q6H PRN PRN Reason: Nausea/Vomiting Last Admin: 08/25/17 23:53 Dose: 4 mg - Labs Labs: 08/26/17 06:00 08/26/17 06:00 - Constitutional Appears: Non-toxic, No Acute Distress - Head Exam Head Exam: ATRAUMATIC, NORMAL INSPECTION, NORMOCEPHALIC - Eye Exam Eye Exam: EOMI, Normal appearance - ENT Exam ENT Exam: Mucous Membranes Moist, Normal Exam - Neck Exam Neck Exam: Full ROM, Normal Inspection - Respiratory Exam Respiratory Exam: Clear to Ausculation Bilateral, NORMAL BREATHING PATTERN - Cardiovascular Exam Cardiovascular Exam: REGULAR RHYTHM, +S1, +S2 - GI/Abdominal Exam GI & Abdominal Exam: Soft, Tenderness (LLQ, LUQ), Normal Bowel Sounds. absent: Distended (obese), Firm, Guarding, Rigid - Extremities Exam Extremities Exam: Normal Inspection. absent: Pedal Edema - Neurological Exam Neurological Exam: Alert, Awake, CN II-XII Intact, Oriented x3 - Psychiatric Exam Psychiatric exam: Normal Affect, Normal Mood - Skin Skin Exam: Dry, Intact, Normal Color, Warm Assessment and Plan - Assessment and Plan (Free Text) Assessment: 49F w/PMH sig for asthma, HTN, diverticulosis, recurrent diverticulitis s/p gastric sleeve w/uncomplicated diverticulitis. Plan: Diverticulitis NPO D5 1/2NS @150 Levaquin daily Flagyl Zofran PRN Morphine PRN Toradol PRN GI recs- NPO at least one more day Surgery recs- NPO, IV Abx, IVF, pain control, smoking cessation, wt loss, stool softeners, diet modification-compliance with bariatric diet, FU outpatient, no surgical intervention at this time GI/DVT ppx Pepcid Lovenox DW attending Renata, PGY-1 <Lincoln Gannon - Last Filed: 08/26/17 10:37> Objective - Vital Signs/Intake and Output Vital Signs (last 24 hours): Temp Pulse Resp BP Pulse Ox 99.9 F H 104 H 20 113/59 L 93 L 08/26/17 07:48 08/26/17 07:48 08/26/17 07:48 08/26/17 07:48 08/26/17 07:48 Intake and Output: 08/26/17 08/26/17 06:59 18:59 Intake Total 1800 Balance 1800 - Medications Medications: Current Medications Acetaminophen (Tylenol 325mg Tab) 650 mg PO Q6H PRN PRN Reason: Fever >100.4 F Last Admin: 08/25/17 16:29 Dose: 650 mg Enoxaparin Sodium (Lovenox) 40 mg SC DAILY [facility] PRN Reason: Protocol Last Admin: 08/26/17 09:45 Dose: 40 mg Famotidine (Pepcid) 20 mg IVP DAILY [facility] Last Admin: 08/26/17 09:46 Dose: 20 mg Metronidazole (Flagyl) 500 mg in 100 mls @ 100 mls/hr IVPB Q8 [facility] PRN Reason: Protocol Last Admin: 08/26/17 05:21 Dose: 100 mls/hr Dextrose/Sodium Chloride (Dextrose 5%/0.45% Ns 1000 Ml) 1,000 mls @ 150 mls/hr IV .Q6H40M [facility] Last Admin: 08/26/17 06:10 Dose: 150 mls/hr Levofloxacin/Dextrose (Levaquin 750mg) 750 mg in 150 mls @ 100 mls/hr IVPB Q24H [facility] PRN Reason: Protocol Ketorolac Tromethamine (Toradol) 15 mg IVP Q8H PRN PRN Reason: Pain, moderate (4-7) Last Admin: 08/25/17 23:53 Dose: 15 mg Morphine Sulfate (Morphine) 2 mg IVP Q4H PRN PRN Reason: Pain, severe (8-10) Last Admin: 08/26/17 09:46 Dose: 2 mg Ondansetron HCl (Zofran Inj) 4 mg IVP Q6H PRN PRN Reason: Nausea/Vomiting Last Admin: 08/25/17 23:53 Dose: 4 mg - Labs Labs: 08/26/17 06:00 08/26/17 06:00 Attending/Attestation - Attestation I have personally seen and examined this patient.: Yes I have fully participated in the care of the patient.: Yes I have reviewed all pertinent clinical information, including history, physical exam and plan: Yes Notes (Text): Patient seen and examined with the residents. Agree with above Continues to have LLQ abdominal pain. Being treated with IV Abx GI following - f/u on recs
[2017-08-26] MEDS ORDERED: levoFLOXacin 750 mg in D5W 750 MG/150 ML BAG IVPB SCH (10:30)
[2017-08-26] MEDS: levoFLOXacin 750 mg in D5W 750 MG/150 ML BAG IVPB SCH (10:42)
--- NOTE | 2017-08-26 13:41 | CP.PCM.PN ---
<Enriqueta Whittaker - Last Filed: 08/26/17 13:40> Subjective - Date & Time of Evaluation Date of Evaluation: 08/26/17 Time of Evaluation: 09:50 - Subjective Subjective: S&E at bedside ,chart reviewed. Family at bedside. Patient still complains of abdominal pain, diffuse throughout abdomen but mainly to left lower quadrant. She complain of having chills last night and sweating profusely, no reports of fevers. Denies nausea or vomiting. Noted to have mild elevated WBC count this morning. Patient did c/o dysuria no hematuria. Patient reports her pain is 8 out of 10. No bowel movements passing flatus. She remains NPO. Objective - Vital Signs/Intake and Output Vital Signs (last 24 hours): Temp Pulse Resp BP Pulse Ox 99.9 F H 104 H 20 113/59 L 93 L 08/26/17 07:48 08/26/17 07:48 08/26/17 07:48 08/26/17 07:48 08/26/17 07:48 Intake and Output: 08/26/17 08/26/17 06:59 18:59 Intake Total 1800 Balance 1800 - Medications Medications: Current Medications Acetaminophen (Tylenol 325mg Tab) 650 mg PO Q6H PRN PRN Reason: Fever >100.4 F Last Admin: 08/25/17 16:29 Dose: 650 mg Enoxaparin Sodium (Lovenox) 40 mg SC DAILY [facility] PRN Reason: Protocol Last Admin: 08/26/17 09:45 Dose: 40 mg Famotidine (Pepcid) 20 mg IVP DAILY [facility] Last Admin: 08/26/17 09:46 Dose: 20 mg Metronidazole (Flagyl) 500 mg in 100 mls @ 100 mls/hr IVPB Q8 [facility] PRN Reason: Protocol Last Admin: 08/26/17 05:21 Dose: 100 mls/hr Dextrose/Sodium Chloride (Dextrose 5%/0.45% Ns 1000 Ml) 1,000 mls @ 150 mls/hr IV .Q6H40M [facility] Last Admin: 08/26/17 06:10 Dose: 150 mls/hr Levofloxacin/Dextrose (Levaquin 750mg) 750 mg in 150 mls @ 100 mls/hr IVPB Q24H [facility] PRN Reason: Protocol Last Admin: 08/26/17 10:42 Dose: 100 mls/hr Ketorolac Tromethamine (Toradol) 15 mg IVP Q8H PRN PRN Reason: Pain, moderate (4-7) Last Admin: 08/25/17 23:53 Dose: 15 mg Morphine Sulfate (Morphine) 2 mg IVP Q4H PRN PRN Reason: Pain, severe (8-10) Last Admin: 08/26/17 09:46 Dose: 2 mg Ondansetron HCl (Zofran Inj) 4 mg IVP Q6H PRN PRN Reason: Nausea/Vomiting Last Admin: 08/25/17 23:53 Dose: 4 mg - Labs Labs: 08/26/17 06:00 08/26/17 06:00 - Constitutional Appears: No Acute Distress - Head Exam Head Exam: NORMOCEPHALIC - Eye Exam Eye Exam: Normal appearance. absent: Scleral icterus - ENT Exam ENT Exam: Mucous Membranes Moist - Neck Exam Neck Exam: Normal Inspection - Respiratory Exam Respiratory Exam: Clear to Ausculation Bilateral, NORMAL BREATHING PATTERN. absent: Respiratory Distress - Cardiovascular Exam Cardiovascular Exam: +S1, +S2 - GI/Abdominal Exam GI & Abdominal Exam: Soft, Tenderness (LLQ but diffuse throughout abdomen, no rebound or guarding), Normal Bowel Sounds. absent: Guarding, Organomegaly, Rebound - Extremities Exam Extremities Exam: absent: Calf Tenderness, Pedal Edema - Neurological Exam Neurological Exam: Alert, Awake, Oriented x3 - Skin Skin Exam: Dry, Warm Assessment and Plan - Assessment and Plan (Free Text) Assessment: Assessment: Acute diverticulitis, status post CT scan today some microperforation but no abscess noted Morbid obesity History of gastric sleeve Leukocytosis Plan: - CT abd/pelvis showed Left colonic diverticulitis diffuse thickening extending into sigmoid, mirco perforation - patient had upper endoscopy in 2016 showed gastritis and duodenitis - patient will need repeat endoscopy outpatient - continue IV antibiotics: Levaquin and Flagyl - continue NPO, patient still having pain only very slight relief 11/11 - continue to monitor LFT's - request for urine culture c/o dysuria - continue IVF for hydration - GI/DVT prophylaxsis, pt OOB : on Pepcid/ Lovenox - pain mgt Seen and discussed with Dr. Coyne <Pacheco Martell V - Last Filed: 08/27/17 01:11> Objective - Vital Signs/Intake and Output Vital Signs (last 24 hours): Temp Pulse Resp BP Pulse Ox 98.9 F 101 H 20 101/68 98 08/26/17 16:00 08/26/17 16:00 08/26/17 16:00 08/26/17 16:00 08/26/17 16:00 - Medications Medications: Current Medications Acetaminophen (Tylenol 325mg Tab) 650 mg PO Q6H PRN PRN Reason: Fever >100.4 F Last Admin: 08/25/17 16:29 Dose: 650 mg Enoxaparin Sodium (Lovenox) 40 mg SC DAILY [facility] PRN Reason: Protocol Last Admin: 08/26/17 09:45 Dose: 40 mg Famotidine (Pepcid) 20 mg IVP DAILY [facility] Last Admin: 08/26/17 09:46 Dose: 20 mg Metronidazole (Flagyl) 500 mg in 100 mls @ 100 mls/hr IVPB Q8 [facility] PRN Reason: Protocol Last Admin: 08/26/17 21:10 Dose: 100 mls/hr Levofloxacin/Dextrose (Levaquin 750mg) 750 mg in 150 mls @ 100 mls/hr IVPB Q24H [facility] PRN Reason: Protocol Last Admin: 08/26/17 10:42 Dose: 100 mls/hr Dextrose/Sodium Chloride (Dextrose 5%/0.45% Ns 1000 Ml) 1,000 mls @ 200 mls/hr IV .Q5H [facility] Last Admin: 08/26/17 18:52 Dose: 200 mls/hr Morphine Sulfate (Morphine) 2 mg IVP Q3H PRN PRN Reason: Pain, severe (8-10) Last Admin: 08/26/17 23:21 Dose: 2 mg Ondansetron HCl (Zofran Inj) 4 mg IVP Q6H PRN PRN Reason: Nausea/Vomiting Last Admin: 08/26/17 12:19 Dose: 4 mg - Labs Labs: 08/26/17 06:00 08/26/17 06:00 Attending/Attestation - Attestation I have personally seen and examined this patient.: Yes I have fully participated in the care of the patient.: Yes I have reviewed all pertinent clinical information, including history, physical exam and plan: Yes Notes (Text): This is an addendum to GI progress report dictated by Enriqueta Whittaker NP.The patient was seen and examined earlier. Medical records, lab studies, imagings were reviewed. Last 24 hours events reviewed. Agreed with the above treatment plan as outlined in [facility] [employer] 's notes the with the addition of the following 08/27/17 01:09 08/27/17 01:10
[2017-08-26] MEDS ORDERED: Morphine 2 mg/2 mL syringe IVP PRN (13:58)
[2017-08-26] MEDS: Morphine 2 mg/2 mL syringe IVP PRN ×3 (17:44→23:21)
[2017-08-27] MEDS: Morphine 2 mg/2 mL syringe IVP PRN ×7 (02:30→22:22)
[2017-08-27] MEDS: Dextrose 5%/0.45% NS 1,000 ML IV SCH ×2 (04:07→16:28)
[2017-08-27] MEDS: metroNIDAZOLE IV 500 mg/100 ml 500 MG/100 ML BAG IVPB SCH ×3 (05:19→22:37)
--- NOTE | 2017-08-27 07:52 | CP.PCM.PN ---
<Josie Rasheed - Last Filed: 08/27/17 09:16> Subjective - Date & Time of Evaluation Date of Evaluation: 08/27/17 Time of Evaluation: 06:40 - Subjective Subjective: Patient seen and examined at bedside this AM. Patient reports vomiting clear emesis one time yesterday but no nausea or vomiting today. Pain is improved and she is passing gas but no BM. Objective - Vital Signs/Intake and Output Vital Signs (last 24 hours): Temp Pulse Resp BP Pulse Ox 98.9 F 101 H 20 101/68 98 08/26/17 16:00 08/26/17 16:00 08/26/17 16:00 08/26/17 16:00 08/26/17 16:00 Intake and Output: 08/27/17 08/27/17 06:59 18:59 Intake Total 5200 Balance 5200 - Medications Medications: Current Medications Acetaminophen (Tylenol 325mg Tab) 650 mg PO Q6H PRN PRN Reason: Fever >100.4 F Last Admin: 08/25/17 16:29 Dose: 650 mg Enoxaparin Sodium (Lovenox) 40 mg SC DAILY [facility] PRN Reason: Protocol Last Admin: 08/26/17 09:45 Dose: 40 mg Famotidine (Pepcid) 20 mg IVP DAILY [facility] Last Admin: 08/26/17 09:46 Dose: 20 mg Metronidazole (Flagyl) 500 mg in 100 mls @ 100 mls/hr IVPB Q8 [facility] PRN Reason: Protocol Last Admin: 08/27/17 05:19 Dose: 100 mls/hr Levofloxacin/Dextrose (Levaquin 750mg) 750 mg in 150 mls @ 100 mls/hr IVPB Q24H [facility] PRN Reason: Protocol Last Admin: 08/26/17 10:42 Dose: 100 mls/hr Dextrose/Sodium Chloride (Dextrose 5%/0.45% Ns 1000 Ml) 1,000 mls @ 200 mls/hr IV .Q5H [facility] Last Admin: 08/27/17 04:07 Dose: 200 mls/hr Morphine Sulfate (Morphine) 2 mg IVP Q3H PRN PRN Reason: Pain, severe (8-10) Last Admin: 08/27/17 05:19 Dose: 2 mg Ondansetron HCl (Zofran Inj) 4 mg IVP Q6H PRN PRN Reason: Nausea/Vomiting Last Admin: 08/26/17 12:19 Dose: 4 mg - Labs Labs: 08/26/17 06:00 08/26/17 06:00 - Constitutional Appears: Well, Non-toxic, No Acute Distress - Head Exam Head Exam: ATRAUMATIC, NORMOCEPHALIC - Eye Exam Eye Exam: Normal appearance. absent: Conjunctival injection, Scleral icterus - ENT Exam ENT Exam: Mucous Membranes Moist, Normal Oropharynx - Respiratory Exam Respiratory Exam: NORMAL BREATHING PATTERN. absent: Accessory Muscle Use, Respiratory Distress - Cardiovascular Exam Cardiovascular Exam: RRR - GI/Abdominal Exam GI & Abdominal Exam: Soft, Tenderness (mild RLQ tenderness to palpation). absent: Distended, Rebound - Extremities Exam Extremities Exam: absent: Calf Tenderness, Pedal Edema, Tenderness - Neurological Exam Neurological Exam: Alert, Awake, Oriented x3 - Psychiatric Exam Psychiatric exam: Normal Affect, Normal Mood - Skin Skin Exam: Dry, Intact, Normal Color, Warm Assessment and Plan - Assessment and Plan (Free Text) Assessment: 46F with Acute diverticulitis with possible microperforation, improving with conservative management Plan: F/U AM labs, continue to trend CBC From a surgical standpoint patient's diet may be advanced this AM--defer management to GI Continue IVF until patient is tolerating adequate PO intake Continue antibiotics Encouraged ambulation, incentive spirometer use Continue PRN pain and nausea medication along with stool softeners Recommend outpatient colonoscopy per GI team's discretion and follow up with Dr. Whitlock in his office for further surgical planning Discussed with Dr. Kamlesh Rasheed, PGY2 <Albert Whitlock - Last Filed: 08/27/17 13:31> Objective - Vital Signs/Intake and Output Vital Signs (last 24 hours): Temp Pulse Resp BP Pulse Ox 99.1 F 85 18 126/74 94 L 08/27/17 06:00 08/27/17 06:00 08/27/17 06:00 08/27/17 06:00 08/27/17 06:00 Intake and Output: 08/27/17 08/27/17 06:59 18:59 Intake Total 5200 Balance 5200 - Medications Medications: Current Medications Acetaminophen (Tylenol 325mg Tab) 650 mg PO Q6H PRN PRN Reason: Fever >100.4 F Last Admin: 08/25/17 16:29 Dose: 650 mg Enoxaparin Sodium (Lovenox) 40 mg SC DAILY [facility] PRN Reason: Protocol Last Admin: 08/27/17 09:05 Dose: 40 mg Famotidine (Pepcid) 20 mg IVP DAILY [facility] Last Admin: 08/27/17 09:05 Dose: 20 mg Metronidazole (Flagyl) 500 mg in 100 mls @ 100 mls/hr IVPB Q8 [facility] PRN Reason: Protocol Last Admin: 08/27/17 05:19 Dose: 100 mls/hr Levofloxacin/Dextrose (Levaquin 750mg) 750 mg in 150 mls @ 100 mls/hr IVPB Q24H [facility] PRN Reason: Protocol Last Admin: 08/27/17 11:04 Dose: 100 mls/hr Dextrose/Sodium Chloride (Dextrose 5%/0.45% Ns 1000 Ml) 1,000 mls @ 200 mls/hr IV .Q5H [facility] Last Admin: 08/27/17 04:07 Dose: 200 mls/hr Morphine Sulfate (Morphine) 2 mg IVP Q3H PRN PRN Reason: Pain, severe (8-10) Last Admin: 08/27/17 11:05 Dose: 2 mg Ondansetron HCl (Zofran Inj) 4 mg IVP Q6H PRN PRN Reason: Nausea/Vomiting Last Admin: 08/26/17 12:19 Dose: 4 mg - Labs Labs: 08/27/17 08:30 08/27/17 08:30 Assessment and Plan - Assessment and Plan (Free Text) Plan: Agree with above. Please see my addendum from [facility]+P for full plan. In addition, would recommend nutrition consult for re-education on post-bariatric diet, now to include more fiber and fluid intake.
[2017-08-27] MEDS: Enoxaparin 40 mg Syringe SC SCH (09:05)
[2017-08-27 09:23] LABS: BASO # 0.01 K/mm3 (0.0-2.0); BASO % 0.2 % (0.0-3.0); EOS # 0.3 (0.0-0.7); GRAN # 4.33 (1.4-6.5); GRAN % 66.2 % (50.0-68.0); HEMOGLOBIN 12.4 g/dL (12.0-16.0); LYMPH # 1.4 (1.2-3.4); LYMPH % 21.9 % (22.0-35.0); MEAN CELL VOLUME 89.3 fl (80.0-105.0); MEAN CORPUSCULAR HEMOGLOBIN 30.2 pg (25.0-35.0); MEAN CORPUSCULAR HGB CONC 33.9 g/dl (31.0-37.0); MEAN PLATELET VOLUME 9.5 fl (7.0-11.0); MONO # 0.5 (0.1-0.6); MONO % 7.7 % (1.0-6.0); RBC 4.1 10^6/uL (3.5-6.1); RED CELL DISTRIBUTION WIDTH 12.3 % (11.5-14.5); WHITE BLOOD COUNT 6.5 10^3/ul (4.5-11.0)
[2017-08-27 09:59] LABS: ALB/GLOB RATIO 1.1 (1.1-1.8); ALBUMIN 3.5 g/dL (3.0-4.8); ALT/SGPT 16 U/L (7-56); AST/SGOT 14 U/L (14-36); BLOOD UREA NITROGEN 10 mg/dL (7-21); CALCIUM 8.9 mg/dL (8.4-10.5); GFR AFRICAN-AMERICAN > 60; GFR NON-AFRICAN AMERICAN 60
[2017-08-27] MEDS: levoFLOXacin 750 mg in D5W 750 MG/150 ML BAG IVPB SCH (11:04)
[2017-08-27] MEDS ORDERED: Potassium Chloride 20 mEq ER Tab PO STA ×2 (11:33→16:30)
[2017-08-27 16:32] VITALS: RESP 20
--- NOTE | 2017-08-27 16:49 | CP.PCM.PN ---
<Jake Ng - Last Filed: 08/27/17 18:09> Subjective - Date & Time of Evaluation Date of Evaluation: 08/27/17 Time of Evaluation: 16:44 - Subjective Subjective: patient seen and examined at bedside. Doing well. Pain much better. Will try CLD today. No fevers or chills, no nausea or vomiting. No diarrhea. No new complaints at this time. Objective - Vital Signs/Intake and Output Vital Signs (last 24 hours): Temp Pulse Resp BP Pulse Ox 98.1 F 80 20 127/86 96 08/27/17 16:31 08/27/17 16:31 08/27/17 16:31 08/27/17 16:31 08/27/17 16:31 Intake and Output: 08/27/17 08/27/17 06:59 18:59 Intake Total 5200 Balance 5200 - Medications Medications: Current Medications Acetaminophen (Tylenol 325mg Tab) 650 mg PO Q6H PRN PRN Reason: Fever >100.4 F Last Admin: 08/25/17 16:29 Dose: 650 mg Enoxaparin Sodium (Lovenox) 40 mg SC DAILY [facility] PRN Reason: Protocol Last Admin: 08/27/17 09:05 Dose: 40 mg Metronidazole (Flagyl) 500 mg in 100 mls @ 100 mls/hr IVPB Q8 [facility] PRN Reason: Protocol Last Admin: 08/27/17 14:07 Dose: 100 mls/hr Levofloxacin/Dextrose (Levaquin 750mg) 750 mg in 150 mls @ 100 mls/hr IVPB Q24H [facility] PRN Reason: Protocol Last Admin: 08/27/17 11:04 Dose: 100 mls/hr Dextrose/Sodium Chloride (Dextrose 5%/0.45% Ns 1000 Ml) 1,000 mls @ 125 mls/hr IV .Q8H [facility] Last Admin: 08/27/17 16:28 Dose: Not Given Morphine Sulfate (Morphine) 2 mg IVP Q3H PRN PRN Reason: Pain, severe (8-10) Last Admin: 08/27/17 14:06 Dose: 2 mg Ondansetron HCl (Zofran Inj) 4 mg IVP Q6H PRN PRN Reason: Nausea/Vomiting Last Admin: 08/26/17 12:19 Dose: 4 mg - Labs Labs: 08/27/17 08:30 08/27/17 08:30 - Constitutional Appears: Well - Head Exam Head Exam: ATRAUMATIC, NORMAL INSPECTION, NORMOCEPHALIC - Eye Exam Eye Exam: EOMI, Normal appearance, PERRL Pupil Exam: NORMAL ACCOMODATION, PERRL - ENT Exam ENT Exam: Mucous Membranes Moist, Normal Exam - Neck Exam Neck Exam: Full ROM, Normal Inspection. absent: Lymphadenopathy - Respiratory Exam Respiratory Exam: Clear to Ausculation Bilateral, NORMAL BREATHING PATTERN - Cardiovascular Exam Cardiovascular Exam: REGULAR RHYTHM, +S1, +S2. absent: Murmur - GI/Abdominal Exam GI & Abdominal Exam: Soft, Normal Bowel Sounds. absent: Tenderness - Extremities Exam Extremities Exam: Full ROM, Normal Capillary Refill, Normal Inspection. absent : Joint Swelling, Pedal Edema - Back Exam Back Exam: NORMAL INSPECTION - Neurological Exam Neurological Exam: Alert, Awake, CN II-XII Intact, Normal Gait, Oriented x3 - Psychiatric Exam Psychiatric exam: Normal Affect, Normal Mood - Skin Skin Exam: Dry, Intact, Normal Color, Warm Assessment and Plan (1) Diverticulitis large intestine w/o perforation or abscess w/o bleeding Assessment & Plan: Surgery (Whitlock) GI (Jayshree) CT - Diffuse thickening of left colon, trace microperf. No abscess or free air D51/2NS @ 125 Flagyl/Levofloxacin Morphine 2 IV Q3 for pain Zofran as needed Tolerating CLD today - will advance tomorrow if tolerated Status: Acute <Selma Grant - Last Filed: 08/28/17 10:53> Objective - Vital Signs/Intake and Output Vital Signs (last 24 hours): Temp Pulse Resp BP Pulse Ox 98.0 F 86 20 117/77 96 08/28/17 06:00 08/28/17 06:00 08/28/17 06:00 08/28/17 06:00 08/28/17 06:00 Intake and Output: 08/28/17 08/28/17 06:59 18:59 Intake Total 360 840 Output Total 700 Balance -340 840 - Medications Medications: Current Medications Acetaminophen (Tylenol 325mg Tab) 650 mg PO Q6H PRN PRN Reason: Fever >100.4 F Last Admin: 08/25/17 16:29 Dose: 650 mg Enoxaparin Sodium (Lovenox) 40 mg SC DAILY [facility] PRN Reason: Protocol Last Admin: 08/28/17 09:35 Dose: 40 mg Metronidazole (Flagyl) 500 mg in 100 mls @ 100 mls/hr IVPB Q8 [facility] PRN Reason: Protocol Last Admin: 08/28/17 06:02 Dose: 100 mls/hr Levofloxacin/Dextrose (Levaquin 750mg) 750 mg in 150 mls @ 100 mls/hr IVPB Q24H [facility] PRN Reason: Protocol Last Admin: 08/28/17 09:35 Dose: 100 mls/hr Dextrose/Sodium Chloride (Dextrose 5%/0.45% Ns 1000 Ml) 1,000 mls @ 125 mls/hr IV .Q8H [facility] Last Admin: 08/28/17 08:08 Dose: 125 mls/hr Morphine Sulfate (Morphine) 2 mg IVP Q3H PRN PRN Reason: Pain, severe (8-10) Last Admin: 08/28/17 09:35 Dose: 2 mg Ondansetron HCl (Zofran Inj) 4 mg IVP Q6H PRN PRN Reason: Nausea/Vomiting Last Admin: 08/26/17 12:19 Dose: 4 mg - Labs Labs: 08/28/17 08:00 08/28/17 08:00 Attending/Attestation - Attestation I have personally seen and examined this patient.: Yes I have fully participated in the care of the patient.: Yes I have reviewed all pertinent clinical information, including history, physical exam and plan: Yes Notes (Text): 08/28/17 10:50 Medical record note made by the resident after discussion with my direction and input after the patient was personally seen and examined by me. I have reviewed the chart and agree that the record accurately reflects by personal performance of the history, physical exam, data review, and medical decision-making, in the course for the patient. I have also personally directed the plan of care. 46 yrs old female with acute Diverticulitis of left side of Colon with yadi perforation. Pain is improved.We will start patient on clear liquid diet and advance slowly. Surgery and GI follow up is appreciated. Management plan was discussed in detail with patient. Education was provided.
[2017-08-28] MEDS: Morphine 2 mg/2 mL syringe IVP PRN ×7 (00:47→21:32)
--- NOTE | 2017-08-28 04:45 | PN ---
DATE: 08/27/2017 SUBJECTIVE: This patient was seen and evaluated earlier today. The patient has a liquid diet, now tolerating. Feels much better now. PHYSICAL EXAMINATION: GENERAL: On examination, her temperature is 98.6, pulse 80, blood pressure 127/86. HEENT: Atraumatic, anicteric. NECK: Supple. HEART: S1 and S2 heard. LUNGS: Bilateral air entry present. ABDOMEN: Soft. There is mild tenderness present in the left lower quadrant area. EXTREMITIES: No cyanosis. No clubbing. LABORATORY DATA: WBC count has come down to 6.5, hemoglobin 12.4, hematocrit 36.6, potassium is 3.3. IMPRESSION: This 46-year-old patient admitted with acute abdominal pain, found to have acute diverticulitis with microperforation. The patient is on IV antibiotics. The patient will continue the antibiotics. The patient is advancing the diet gradually. The patient would benefit from elective colonoscopic evaluation. Thank you very much for allowing us to participate in the care of the patient. Pacheco Martell MD [facility]
[2017-08-28] MEDS: metroNIDAZOLE IV 500 mg/100 ml 500 MG/100 ML BAG IVPB SCH ×3 (06:02→21:32)
--- NOTE | 2017-08-28 08:00 | CP.PCM.PN ---
Subjective - Date & Time of Evaluation Date of Evaluation: 08/28/17 Time of Evaluation: 07:05 - Subjective Subjective: Surgery Progress note. Dr. Whitlock Pt seen and examined at bedside. No acute events overnight. Patient reports an episode of vomiting last night, unwhitnessed and patient did not report it to the nursing staff. She c/o some dysuria which started last night. No F/C. No CP/ SOB. Objective - Vital Signs/Intake and Output Vital Signs (last 24 hours): Temp Pulse Resp BP Pulse Ox 98.0 F 86 20 117/77 96 08/28/17 06:00 08/28/17 06:00 08/28/17 06:00 08/28/17 06:00 08/28/17 06:00 Intake and Output: 08/28/17 08/28/17 06:59 18:59 Intake Total 360 Output Total 700 Balance -340 - Medications Medications: Current Medications Acetaminophen (Tylenol 325mg Tab) 650 mg PO Q6H PRN PRN Reason: Fever >100.4 F Last Admin: 08/25/17 16:29 Dose: 650 mg Enoxaparin Sodium (Lovenox) 40 mg SC DAILY [facility] PRN Reason: Protocol Last Admin: 08/27/17 09:05 Dose: 40 mg Metronidazole (Flagyl) 500 mg in 100 mls @ 100 mls/hr IVPB Q8 [facility] PRN Reason: Protocol Last Admin: 08/28/17 06:02 Dose: 100 mls/hr Levofloxacin/Dextrose (Levaquin 750mg) 750 mg in 150 mls @ 100 mls/hr IVPB Q24H [facility] PRN Reason: Protocol Last Admin: 08/27/17 11:04 Dose: 100 mls/hr Dextrose/Sodium Chloride (Dextrose 5%/0.45% Ns 1000 Ml) 1,000 mls @ 125 mls/hr IV .Q8H [facility] Last Admin: 08/27/17 16:28 Dose: Not Given Morphine Sulfate (Morphine) 2 mg IVP Q3H PRN PRN Reason: Pain, severe (8-10) Last Admin: 08/28/17 06:37 Dose: 2 mg Ondansetron HCl (Zofran Inj) 4 mg IVP Q6H PRN PRN Reason: Nausea/Vomiting Last Admin: 08/26/17 12:19 Dose: 4 mg - Labs Labs: 08/27/17 08:30 08/27/17 08:30 - Constitutional Appears: Well, Non-toxic, No Acute Distress - Head Exam Head Exam: ATRAUMATIC, NORMAL INSPECTION, NORMOCEPHALIC - Eye Exam Eye Exam: EOMI, Normal appearance - ENT Exam ENT Exam: Mucous Membranes Moist - Respiratory Exam Respiratory Exam: NORMAL BREATHING PATTERN. absent: Accessory Muscle Use, Respiratory Distress - Cardiovascular Exam Cardiovascular Exam: RRR. absent: JVD - GI/Abdominal Exam GI & Abdominal Exam: Soft. absent: Distended, Firm, Guarding, Rebound Additional comments: tenderness to palpation LLQ - Extremities Exam Extremities Exam: Normal Inspection. absent: Calf Tenderness - Back Exam Back Exam: NORMAL INSPECTION - Neurological Exam Neurological Exam: Alert, Awake, Oriented x3 - Psychiatric Exam Psychiatric exam: Normal Affect, Normal Mood - Skin Skin Exam: Dry, Intact, Normal Color, Warm Assessment and Plan - Assessment and Plan (Free Text) Assessment: 46yo F with recurrent diverticulitis w poss microperf. Improving on conservative management Plan: - Continue CLD. ADAT slowly - f/u urine culture for c/o dysuria. Low suspicion for fistula - IVF - Continue Abx - Encourage OOBTC, Ambulation - pain management - antiemetics - Would benefit from outpatient colonoscopy and follow up with Dr. Whitlock in office for elective surgical planning. Call for appointment Further recs as per Dr. Kamlesh Bright PGY1 surgery pager: [phone]
[2017-08-28] MEDS: Dextrose 5%/0.45% NS 1,000 ML IV SCH ×3 (08:08→20:27)
[2017-08-28 08:20] LABS: BASO # 0.01 K/mm3 (0.0-2.0); BASO % 0.2 % (0.0-3.0); EOS # 0.3 (0.0-0.7); EOS % 5.1 % (1.5-5.0); GRAN # 3.19 (1.4-6.5); GRAN % 60.8 % (50.0-68.0); HEMOGLOBIN 12.1 g/dL (12.0-16.0); LYMPH # 1.4 (1.2-3.4); LYMPH % 26.7 % (22.0-35.0); MEAN CELL VOLUME 88.5 fl (80.0-105.0); MEAN CORPUSCULAR HEMOGLOBIN 30.8 pg (25.0-35.0); MEAN CORPUSCULAR HGB CONC 34.8 g/dl (31.0-37.0); MEAN PLATELET VOLUME 9.1 fl (7.0-11.0); MONO # 0.4 (0.1-0.6); MONO % 7.2 % (1.0-6.0); RBC 3.93 10^6/uL (3.5-6.1); RED CELL DISTRIBUTION WIDTH 12.3 % (11.5-14.5); WHITE BLOOD COUNT 5.3 10^3/ul (4.5-11.0)
[2017-08-28 08:32] LABS: ALB/GLOB RATIO 1.1 (1.1-1.8); ALBUMIN 3.3 g/dL (3.0-4.8); ALT/SGPT 17 U/L (7-56); AST/SGOT 9 U/L (14-36); BLOOD UREA NITROGEN 8 mg/dL (7-21); CALCIUM 8.8 mg/dL (8.4-10.5); GFR AFRICAN-AMERICAN > 60; GFR NON-AFRICAN AMERICAN > 60
[2017-08-28 08:51] LABS: URINE BILIRUBIN NEGATIVE (NEGATIVE); URINE BLOOD NEGATIVE (NEGATIVE); URINE GLUCOSE (UA) NEGATIVE (NEGATIVE); URINE LEUKOCYTE ESTERASE TRACE Leu/uL (NEGATIVE); URINE PROTEIN NEGATIVE mg/dL (<30 mg/dL); URINE UROBILINOGEN 0.2 E.U./dL (<1 E.U./dL)
[2017-08-28 08:52] LABS: URINE APPEARANCE CLEAR (CLEAR); URINE COLOR YELLOW (YELLOW)
[2017-08-28 09:09] LABS: URINE BACTERIA SMALL (NEG); URINE RBC NEGATIVE /hpf (0-2); URINE WBC 0 - 2 /hpf (0-6)
[2017-08-28] MEDS: Enoxaparin 40 mg Syringe SC SCH (09:35)
[2017-08-28] MEDS: levoFLOXacin 750 mg in D5W 750 MG/150 ML BAG IVPB SCH (09:35)
--- NOTE | 2017-08-28 12:51 | CP.PCM.PN ---
<Jake Ng - Last Filed: 08/28/17 12:46> Subjective - Date & Time of Evaluation Date of Evaluation: 08/28/17 Time of Evaluation: 12:46 - Subjective Subjective: Patient seen and examined at bedside. Tolerating diet. Complains of one episode of nausea/vomiting yesterday but the nurse taking care of her states she tolerated her diet well with no vomiting. No fevers or chills. Complaining of dysuria. No other complaints at this time. Objective - Vital Signs/Intake and Output Vital Signs (last 24 hours): Temp Pulse Resp BP Pulse Ox 98.0 F 86 20 117/77 96 08/28/17 06:00 08/28/17 06:00 08/28/17 06:00 08/28/17 06:00 08/28/17 06:00 Intake and Output: 08/28/17 08/28/17 06:59 18:59 Intake Total 360 840 Output Total 700 Balance -340 840 - Medications Medications: Current Medications Acetaminophen (Tylenol 325mg Tab) 650 mg PO Q6H PRN PRN Reason: Fever >100.4 F Last Admin: 08/25/17 16:29 Dose: 650 mg Enoxaparin Sodium (Lovenox) 40 mg SC DAILY [facility] PRN Reason: Protocol Last Admin: 08/28/17 09:35 Dose: 40 mg Metronidazole (Flagyl) 500 mg in 100 mls @ 100 mls/hr IVPB Q8 [facility] PRN Reason: Protocol Last Admin: 08/28/17 06:02 Dose: 100 mls/hr Levofloxacin/Dextrose (Levaquin 750mg) 750 mg in 150 mls @ 100 mls/hr IVPB Q24H [facility] PRN Reason: Protocol Last Admin: 08/28/17 09:35 Dose: 100 mls/hr Dextrose/Sodium Chloride (Dextrose 5%/0.45% Ns 1000 Ml) 1,000 mls @ 125 mls/hr IV .Q8H [facility] Last Admin: 08/28/17 08:08 Dose: 125 mls/hr Morphine Sulfate (Morphine) 2 mg IVP Q3H PRN PRN Reason: Pain, severe (8-10) Last Admin: 08/28/17 09:35 Dose: 2 mg Ondansetron HCl (Zofran Inj) 4 mg IVP Q6H PRN PRN Reason: Nausea/Vomiting Last Admin: 08/28/17 12:42 Dose: 4 mg - Labs Labs: 08/28/17 08:00 08/28/17 08:00 - Constitutional Appears: Well - Head Exam Head Exam: ATRAUMATIC, NORMAL INSPECTION, NORMOCEPHALIC - Eye Exam Eye Exam: EOMI, Normal appearance, PERRL Pupil Exam: NORMAL ACCOMODATION, PERRL - ENT Exam ENT Exam: Mucous Membranes Moist, Normal Exam - Neck Exam Neck Exam: Full ROM, Normal Inspection. absent: Lymphadenopathy - Respiratory Exam Respiratory Exam: Clear to Ausculation Bilateral, NORMAL BREATHING PATTERN - Cardiovascular Exam Cardiovascular Exam: REGULAR RHYTHM, +S1, +S2. absent: Murmur - GI/Abdominal Exam GI & Abdominal Exam: Soft, Tenderness (mild LLQ tenderness to palpation), Normal Bowel Sounds. absent: Distended - Extremities Exam Extremities Exam: Full ROM, Normal Capillary Refill, Normal Inspection. absent : Joint Swelling, Pedal Edema - Back Exam Back Exam: NORMAL INSPECTION - Neurological Exam Neurological Exam: Alert, Awake, CN II-XII Intact, Normal Gait, Oriented x3 - Psychiatric Exam Psychiatric exam: Normal Affect, Normal Mood - Skin Skin Exam: Dry, Intact, Normal Color, Warm Assessment and Plan - Assessment and Plan (Free Text) Assessment: (1) Diverticulitis large intestine w/o perforation or abscess w/o bleeding Assessment & Plan: Surgery (Whitlock) GI ([facility]ayshree) CT - Diffuse thickening of left colon, trace microperf. No abscess or free air D51/2NS @ 125 Flagyl/Levofloxacin Morphine 2 IV Q3 for pain Zofran as needed HHD - will follow up how well tolerated Status: Acute <Selma Grant - Last Filed: 08/28/17 14:03> Objective - Vital Signs/Intake and Output Vital Signs (last 24 hours): Temp Pulse Resp BP Pulse Ox 98.0 F 86 20 117/77 96 08/28/17 06:00 08/28/17 06:00 08/28/17 06:00 08/28/17 06:00 08/28/17 06:00 Intake and Output: 08/28/17 08/28/17 06:59 18:59 Intake Total 360 840 Output Total 700 Balance -340 840 - Medications Medications: Current Medications Acetaminophen (Tylenol 325mg Tab) 650 mg PO Q6H PRN PRN Reason: Fever >100.4 F Last Admin: 08/25/17 16:29 Dose: 650 mg Enoxaparin Sodium (Lovenox) 40 mg SC DAILY [facility] PRN Reason: Protocol Last Admin: 08/28/17 09:35 Dose: 40 mg Metronidazole (Flagyl) 500 mg in 100 mls @ 100 mls/hr IVPB Q8 [facility] PRN Reason: Protocol Last Admin: 08/28/17 13:21 Dose: 100 mls/hr Levofloxacin/Dextrose (Levaquin 750mg) 750 mg in 150 mls @ 100 mls/hr IVPB Q24H [facility] PRN Reason: Protocol Last Admin: 08/28/17 09:35 Dose: 100 mls/hr Dextrose/Sodium Chloride (Dextrose 5%/0.45% Ns 1000 Ml) 1,000 mls @ 125 mls/hr IV .Q8H [facility] Last Admin: 08/28/17 08:08 Dose: 125 mls/hr Morphine Sulfate (Morphine) 2 mg IVP Q3H PRN PRN Reason: Pain, severe (8-10) Last Admin: 08/28/17 13:25 Dose: 2 mg Ondansetron HCl (Zofran Inj) 4 mg IVP Q6H PRN PRN Reason: Nausea/Vomiting Last Admin: 08/28/17 12:42 Dose: 4 mg - Labs Labs: 08/28/17 08:00 08/28/17 08:00 Attending/Attestation - Attestation I have personally seen and examined this patient.: Yes I have fully participated in the care of the patient.: Yes I have reviewed all pertinent clinical information, including history, physical exam and plan: Yes Notes (Text): 08/28/17 14:01 Medical record note made by the resident after discussion with my direction and input after the patient was personally seen and examined by me. I have reviewed the chart and agree that the record accurately reflects by personal performance of the history, physical exam, data review, and medical decision-making, in the course for the patient. I have also personally directed the plan of care. 46 yrs old with recurrent diverticulitis with poss microperf.Patient abdominal pain is better.She is improving on conservative management, Continue liquid diet, Continue levaquin and Flagyl. Patient will need out patient Colonoscopy in 6-8 weeks. Management plan was discussed in detail with patient. Education was provided.
[2017-08-28] MEDS ORDERED: Morphine 2 mg/2 mL syringe IVP STA (23:10)
[2017-08-29] MEDS: metroNIDAZOLE IV 500 mg/100 ml 500 MG/100 ML BAG IVPB SCH ×3 (05:34→21:35)
[2017-08-29] MEDS: Morphine 2 mg/2 mL syringe IVP PRN (05:35)
--- NOTE | 2017-08-29 07:42 | CP.PCM.PN ---
Subjective - Date & Time of Evaluation Date of Evaluation: 08/29/17 Time of Evaluation: 07:30 - Subjective Subjective: General Surgery Note for Dr. Whitlock Patient seen and examined at bedside. No acute events overnight. Patient reports pain after eating soft diet. SHe said pain began 2 hours after eating. Patient wants to go back to full liquids. We will see how she does. Admits flatus but denies bm. Denies fever/chills or nausea/vomiting. Objective - Vital Signs/Intake and Output Vital Signs (last 24 hours): Temp Pulse Resp BP Pulse Ox 98.0 F 86 20 117/77 96 08/28/17 06:00 08/28/17 06:00 08/28/17 06:00 08/28/17 06:00 08/28/17 06:00 Intake and Output: 08/29/17 08/29/17 06:59 18:59 Intake Total 1250 Output Total 0 Balance 1250 - Medications Medications: Current Medications Acetaminophen (Tylenol 325mg Tab) 650 mg PO Q6H PRN PRN Reason: Fever >100.4 F Last Admin: 08/25/17 16:29 Dose: 650 mg Enoxaparin Sodium (Lovenox) 40 mg SC DAILY [facility] PRN Reason: Protocol Last Admin: 08/28/17 09:35 Dose: 40 mg Metronidazole (Flagyl) 500 mg in 100 mls @ 100 mls/hr IVPB Q8 [facility] PRN Reason: Protocol Last Admin: 08/29/17 05:34 Dose: 100 mls/hr Levofloxacin/Dextrose (Levaquin 750mg) 750 mg in 150 mls @ 100 mls/hr IVPB Q24H [facility] PRN Reason: Protocol Last Admin: 08/28/17 09:35 Dose: 100 mls/hr Dextrose/Sodium Chloride (Dextrose 5%/0.45% Ns 1000 Ml) 1,000 mls @ 125 mls/hr IV .Q8H [facility] Last Admin: 08/28/17 20:27 Dose: 125 mls/hr Morphine Sulfate (Morphine) 2 mg IVP Q3H PRN PRN Reason: Pain, severe (8-10) Last Admin: 08/29/17 05:35 Dose: 2 mg Ondansetron HCl (Zofran Inj) 4 mg IVP Q6H PRN PRN Reason: Nausea/Vomiting Last Admin: 08/28/17 12:42 Dose: 4 mg - Labs Labs: 08/28/17 08:00 08/28/17 08:00 - Additional Findings Additional findings: - Constitutional Appears: Well, Non-toxic, No Acute Distress - Head Exam Head Exam: ATRAUMATIC, NORMAL INSPECTION, NORMOCEPHALIC - Eye Exam Eye Exam: EOMI, Normal appearance - ENT Exam ENT Exam: Mucous Membranes Moist - Respiratory Exam Respiratory Exam: NORMAL BREATHING PATTERN. absent: Accessory Muscle Use, Respiratory Distress - Cardiovascular Exam Cardiovascular Exam: RRR. - GI/Abdominal Exam GI & Abdominal Exam: Soft. absent: Distended, Firm, Guarding, Rebound Additional comments: mild tenderness to palpation LLQ - Extremities Exam Extremities Exam: Normal Inspection. absent: Calf Tenderness - Back Exam Back Exam: NORMAL INSPECTION - Neurological Exam Neurological Exam: Alert, Awake, Oriented x3 - Psychiatric Exam Psychiatric exam: Normal Affect, Normal Mood - Skin Skin Exam: Dry, Intact, Normal Color, Warm Assessment and Plan - Assessment and Plan (Free Text) Assessment: 46 F with recurrent diverticulitis w possible microperforation Plan: - FLD, ADAT - IV Fluids - Continue Antibiotics - Encourage OOB to chair and Ambulation - Analgesics/Anti-emetics PRN - Would benefit from outpatient colonoscopy and follow up with Dr. Whitlock in office for elective surgical planning. Call for appointment - Further recommendations as per Dr. Kamlesh Calvo PGY1
[2017-08-29] MEDS ORDERED: Morphine 4 mg/ml ISec IV PRN ×2 (07:53→10:24)
[2017-08-29] MEDS: levoFLOXacin 750 mg in D5W 750 MG/150 ML BAG IVPB SCH (10:15)
[2017-08-29] MEDS: Enoxaparin 40 mg Syringe SC SCH (10:15)
[2017-08-29] MEDS: POLYETHYLENE GLYCOL 3350 17 GM/Dose PACKET PO SCH ×3 (10:17→17:20)
[2017-08-29] MEDS: Dextrose 5%/0.45% NS 1,000 ML IV SCH ×2 (10:21→21:35)
--- NOTE | 2017-08-29 12:41 | US ---
PROCEDURE: Left upper extremity venous ultrasound HISTORY: Arm pain and swelling. Evaluate for deep venous thrombosis. PHYSICIAN(S): Travon Teran MD. FINDINGS: The visualized leftinternal jugular vein is sonographically normal and compressible. No evidence of obstruction or thrombus is seen. The visualized segments of the left subclavian vein are patent with normal waveforms. No sonographic evidence of obstruction or thrombosis is seen. The visualized deep venous system of the proximal leftupper extremity is sonographically normal and compressible. IMPRESSION: 1. No sonographic evidence for deep venous thrombosis in the visualized segments of the left upper extremity.
[2017-08-29] MEDS: Oxycodone/Acetaminophen 5/325 mg Tab PO PRN ×2 (13:56→21:34)
--- NOTE | 2017-08-29 15:55 | CP.PCM.PN ---
<JoshChele Carlos - Last Filed: 08/29/17 15:52> Subjective - Date & Time of Evaluation Date of Evaluation: 08/29/17 Time of Evaluation: 09:00 - Subjective Subjective: Medicine progress note: Dr. Grant Patient seen and examined at bedside. No acute overnight events, patient is doing well and states that she would like to try to advance her diet. Patient was not able to tolerate her diet last night. Other than that, patient denies fevers chills and any other complaints. Objective - Vital Signs/Intake and Output Vital Signs (last 24 hours): Temp Pulse Resp BP Pulse Ox 98.4 F 91 H 20 142/92 H 94 L 08/29/17 04:00 08/29/17 04:00 08/29/17 04:00 08/29/17 04:00 08/29/17 04:00 Intake and Output: 08/29/17 08/29/17 06:59 18:59 Intake Total 1250 660 Output Total 0 Balance 1250 660 - Medications Medications: Current Medications Acetaminophen (Tylenol 325mg Tab) 650 mg PO Q6H PRN PRN Reason: Fever >100.4 F Last Admin: 08/25/17 16:29 Dose: 650 mg Enoxaparin Sodium (Lovenox) 40 mg SC DAILY TIFFANY PRN Reason: Protocol Last Admin: 08/29/17 10:15 Dose: 40 mg Metronidazole (Flagyl) 500 mg in 100 mls @ 100 mls/hr IVPB Q8 TIFFANY PRN Reason: Protocol Last Admin: 08/29/17 13:57 Dose: 100 mls/hr Levofloxacin/Dextrose (Levaquin 750mg) 750 mg in 150 mls @ 100 mls/hr IVPB Q24H TIFFANY PRN Reason: Protocol Last Admin: 08/29/17 10:15 Dose: 100 mls/hr Dextrose/Sodium Chloride (Dextrose 5%/0.45% Ns 1000 Ml) 1,000 mls @ 125 mls/hr IV .Q8H TIFFANY Last Admin: 08/29/17 10:21 Dose: 125 mls/hr Morphine Sulfate (Morphine) 2 mg IVP Q6H PRN PRN Reason: Pain, severe (8-10) Ondansetron HCl (Zofran Inj) 4 mg IVP Q6H PRN PRN Reason: Nausea/Vomiting Last Admin: 08/28/17 12:42 Dose: 4 mg Oxycodone/Acetaminophen (Percocet 5/325 Mg Tab) 1 tab PO Q6H PRN PRN Reason: Pain, moderate (4-7) Stop: 09/01/17 10:24 Last Admin: 08/29/17 13:56 Dose: 1 tab Polyethylene Glycol (Miralax) 17 gm PO TID TIFFANY Last Admin: 08/29/17 13:57 Dose: 17 gm - Labs Labs: 08/28/17 08:00 08/28/17 08:00 - Constitutional Appears: Well - Head Exam Head Exam: ATRAUMATIC, NORMAL INSPECTION, NORMOCEPHALIC - Eye Exam Eye Exam: EOMI, Normal appearance, PERRL Pupil Exam: NORMAL ACCOMODATION, PERRL - ENT Exam ENT Exam: Mucous Membranes Moist, Normal Exam - Neck Exam Neck Exam: Full ROM, Normal Inspection. absent: Lymphadenopathy - Respiratory Exam Respiratory Exam: Clear to Ausculation Bilateral, NORMAL BREATHING PATTERN - Cardiovascular Exam Cardiovascular Exam: REGULAR RHYTHM, +S1, +S2. absent: Murmur - GI/Abdominal Exam GI & Abdominal Exam: Soft, Normal Bowel Sounds. absent: Tenderness - Extremities Exam Extremities Exam: Full ROM, Normal Capillary Refill, Normal Inspection. absent : Joint Swelling, Pedal Edema - Back Exam Back Exam: NORMAL INSPECTION - Neurological Exam Neurological Exam: Alert, Awake, CN II-XII Intact, Normal Gait, Oriented x3 - Psychiatric Exam Psychiatric exam: Normal Affect, Normal Mood - Skin Skin Exam: Dry, Intact, Normal Color, Warm Assessment and Plan - Assessment and Plan (Free Text) Assessment: 46 year old female with a pertinent medical history of diverticulosis and gastric sleeve 10/2016 who presented with 2 days of crampy LLQ abdominal pain that became constant on day of admission. Initial CT Abdomen/Pelvis showed left colonic diverticulitis with trace microperforation without abscess. Patient has had slow advancement of diet. Patient's labs and vitals today are stable without SIRS criteria. Plan: Left Colonic Diverticulitis - GI consult: Dr. Martell - Surgery consult: Dr. Wynn - Flagyl/Levaquin - Morphine for severe pain, Percocet for moderate pain, Zofran, D5/.5NS, Miralax TID - Soft Diet for Dinner History Asthma - No intervention necessary at this time History HTN - No intervention necessary at this time History Tobacco Use - Advised cessation GI/DVT Prophylaxis - Lovenox, No GI PPX at present <Selma Grant - Last Filed: 08/30/17 15:36> Objective - Vital Signs/Intake and Output Vital Signs (last 24 hours): Temp Pulse Resp BP Pulse Ox 97.9 F 84 20 129/80 96 08/30/17 07:42 08/30/17 07:42 08/30/17 07:42 08/30/17 07:42 08/30/17 07:42 Intake and Output: 08/30/17 08/30/17 06:59 18:59 Intake Total 360 Output Total 1800 Balance -1440 - Labs Labs: 08/30/17 07:40 08/30/17 07:40 Attending/Attestation - Attestation I have personally seen and examined this patient.: Yes I have fully participated in the care of the patient.: Yes I have reviewed all pertinent clinical information, including history, physical exam and plan: Yes Notes (Text): 08/30/17 15:34 Medical record note made by the resident after discussion with my direction and input after the patient was personally seen and examined by me. I have reviewed the chart and agree that the record accurately reflects by personal performance of the history, physical exam, data review, and medical decision-making, in the course for the patient. I have also personally directed the plan of care. 46 yrs old with recurrent diverticulitis with possible micro perforation.Patient abdominal pain is better.She is improving on conservative management, Her abdominal examination today revealed minimal tenderness, we will advance her diet.We will switch to PO Percocet and will use Morphine for severe pain only. Continue levaquin and Flagyl. Patient will need out patient Colonoscopy in 6-8 weeks. Management plan was discussed in detail with patient. Education was provided.
[2017-08-29] MEDS: Morphine 4 mg/ml ISec IVP PRN (17:20)
[2017-08-30] MEDS: Morphine 4 mg/ml ISec IVP PRN ×2 (01:36→10:35)
[2017-08-30] MEDS: metroNIDAZOLE IV 500 mg/100 ml 500 MG/100 ML BAG IVPB SCH (05:28)
[2017-08-30] MEDS: Dextrose 5%/0.45% NS 1,000 ML IV SCH (05:29)
[2017-08-30] MEDS: Oxycodone/Acetaminophen 5/325 mg Tab PO PRN (05:55)
[2017-08-30 07:43] VITALS: BP 129/80; PULSE 84; TEMP 97.9; O2SAT 96
[2017-08-30 07:49] LABS: BASO # 0.01 K/mm3 (0.0-2.0); BASO % 0.2 % (0.0-3.0); EOS # 0.3 (0.0-0.7); GRAN # 2.37 (1.4-6.5); GRAN % 51.5 % (50.0-68.0); HEMOGLOBIN 12.2 g/dL (12.0-16.0); LYMPH # 1.6 (1.2-3.4); LYMPH % 33.9 % (22.0-35.0); MEAN CELL VOLUME 88.4 fl (80.0-105.0); MEAN CORPUSCULAR HEMOGLOBIN 30.7 pg (25.0-35.0); MEAN CORPUSCULAR HGB CONC 34.7 g/dl (31.0-37.0); MEAN PLATELET VOLUME 8.6 fl (7.0-11.0); MONO # 0.3 (0.1-0.6); MONO % 7.4 % (1.0-6.0); RBC 3.98 10^6/uL (3.5-6.1); RED CELL DISTRIBUTION WIDTH 12.3 % (11.5-14.5); WHITE BLOOD COUNT 4.6 10^3/ul (4.5-11.0)
[2017-08-30 08:04] LABS: ALB/GLOB RATIO 1.1 (1.1-1.8); ALBUMIN 3.1 g/dL (3.0-4.8); ALT/SGPT 15 U/L (7-56); AST/SGOT 11 U/L (14-36); BLOOD UREA NITROGEN 5 mg/dL (7-21); CALCIUM 8.8 mg/dL (8.4-10.5); GFR AFRICAN-AMERICAN > 60; GFR NON-AFRICAN AMERICAN > 60
--- NOTE | 2017-08-30 09:26 | PN ---
DATE: 08/28/2017 SUBJECTIVE: This patient was seen and evaluated earlier today. The patient still complains of pain in the left side of the abdomen. The diet has been advanced by the Surgery to heart-healthy diet. PHYSICAL EXAMINATION: VITAL SIGNS: The patient is afebrile, temperature 98; blood pressure 117/77; pulse 86; respirations 20; O2 saturation is 96%. HEENT: Atraumatic, anicteric. NECK: Supple. HEART: S1 and S2 heard. LUNGS: Bilateral air entry present. ABDOMEN: There is tenderness present in the left lower quadrant area. There is no rebound. EXTREMITIES: No cyanosis. No clubbing. NEUROLOGICAL: Alert, oriented. Moves all the extremities. LABORATORY DATA: Hemoglobin 12.1, hematocrit 34.8, WBC 5.3, platelets 215. Chemistry is essentially unremarkable. IMPRESSION: This is a 46-year-old patient with acute diverticulitis with microperforation. He is on IV Levaquin and Flagyl. Would need a repeat CT if there is any worsening of the symptoms. The patient would benefit from the elective colonoscopic evaluation. Pacheco Martell MD
[2017-08-30] MEDS: POLYETHYLENE GLYCOL 3350 17 GM/Dose PACKET PO SCH (10:14)
[2017-08-30] MEDS: Enoxaparin 40 mg Syringe SC SCH (10:14)
[2017-08-30] MEDS: levoFLOXacin 750 mg in D5W 750 MG/150 ML BAG IVPB SCH (10:14)
--- NOTE | 2017-08-30 15:00 | CP.PCM.DIS ---
<Jake Ng - Last Filed: 08/30/17 14:53> Provider - Provider Date of Admission: 08/24/17 20:30 Attending physician: Selma Grant MD Primary care physician: Mark Castellanos DO Consults: Surgery: Kamlesh GI: Jayshree Time Spent in preparation of Discharge (in minutes): 45 Hospital Course - Lab Results Lab Results: Micro Results 08/26/17 18:01 Urine Urine Culture - Final No Growth (<1,000 CFU/ML) Most Recent Lab Values WBC 4.6 10^3/ul (4.5-11.0) 08/30/17 07:40 RBC 3.98 10^6/uL (3.5-6.1) 08/30/17 07:40 Hgb 12.2 g/dL (12.0-16.0) 08/30/17 07:40 Hct 35.2 % (36.0-48.0) L 08/30/17 07:40 MCV 88.4 fl (80.0-105.0) 08/30/17 07:40 MCH 30.7 pg (25.0-35.0) 08/30/17 07:40 MCHC 34.7 g/dl (31.0-37.0) 08/30/17 07:40 RDW 12.3 % (11.5-14.5) 08/30/17 07:40 Plt Count 234 10^3/uL (120.0-450.0) 08/30/17 07:40 MPV 8.6 fl (7.0-11.0) 08/30/17 07:40 Gran % 51.5 % (50.0-68.0) 08/30/17 07:40 Lymph % (Auto) 33.9 % (22.0-35.0) 08/30/17 07:40 [place] % (Auto) 7.4 % (1.0-6.0) H 08/30/17 07:40 Eos % (Auto) 7.0 % (1.5-5.0) H 08/30/17 07:40 Baso % (Auto) 0.2 % (0.0-3.0) 08/30/17 07:40 Gran # 2.37 (1.4-6.5) 08/30/17 07:40 Lymph # (Auto) 1.6 (1.2-3.4) 08/30/17 07:40 [place] # (Auto) 0.3 (0.1-0.6) 08/30/17 07:40 Eos # (Auto) 0.3 (0.0-0.7) 08/30/17 07:40 Baso # (Auto) 0.01 K/mm3 (0.0-2.0) 08/30/17 07:40 pO2 30 mm/Hg (30-55) 08/24/17 16:39 VBG pH 7.33 (7.32-7.43) 08/24/17 16:39 VBG pCO2 57.0 (40-60) 08/24/17 16:39 VBG HCO3 30.1 mmol/l (21-28) H 08/24/17 16:39 VBG Total CO2 31.8 mmol.L (22-28) H 08/24/17 16:39 VBG O2 Sat (Calc) 61.5 % (40-65) 08/24/17 16:39 VBG Base Excess 2.8 mmol/L (0.0-2.0) H 08/24/17 16:39 VBG Potassium 4.0 mmol/L (3.6-5.2) 08/24/17 16:39 Sodium 139.0 mmol/L (132-148) 08/24/17 16:39 Chloride 107.0 mmol/L (98-107) 08/24/17 16:39 Glucose 93 mg/dl (65-105) 08/24/17 16:39 Lactate 0.7 mmol/L (0.7-2.1) 08/24/17 16:39 FiO2 21.0 % 08/24/17 16:39 Sodium 143 mmol/L (132-148) 08/30/17 07:40 Potassium 3.9 mmol/L (3.6-5.0) 08/30/17 07:40 Chloride 108 mmol/L (98-107) H 08/30/17 07:40 Carbon Dioxide 26 mmol/L (21-33) 08/30/17 07:40 Anion Gap 13 (10-20) 08/30/17 07:40 BUN 5 mg/dL (7-21) L 08/30/17 07:40 Creatinine 0.9 mg/dl (0.7-1.2) 08/30/17 07:40 Est GFR ( Amer) > 60 08/30/17 07:40 Est GFR (Non-Af Amer) > 60 08/30/17 07:40 Random Glucose 92 mg/dL (70-110) 08/30/17 07:40 Calcium 8.8 mg/dL (8.4-10.5) 08/30/17 07:40 Phosphorus 3.4 mg/dL (2.5-4.5) 08/30/17 07:40 Magnesium 1.8 mg/dL (1.7-2.2) 08/30/17 07:40 Total Bilirubin 0.2 mg/dL (0.2-1.3) 08/30/17 07:40 AST 11 U/L (14-36) L D 08/30/17 07:40 ALT 15 U/L (7-56) 08/30/17 07:40 Alkaline Phosphatase 40 U/L (38-126) 08/30/17 07:40 Total Protein 6.1 g/dL (5.8-8.3) 08/30/17 07:40 Albumin 3.1 g/dL (3.0-4.8) 08/30/17 07:40 Globulin 3.0 gm/dL 08/30/17 07:40 Albumin/Globulin Ratio 1.1 (1.1-1.8) 08/30/17 07:40 Lipase 54 U/L (23-300) 08/24/17 16:39 Venous Blood Potassium 4.0 mmol/L (3.6-5.2) 08/24/17 16:39 Urine Color Yellow (YELLOW) 08/28/17 08:30 Urine Appearance Clear (CLEAR) 08/28/17 08:30 Urine pH 6.0 (4.7-8.0) 08/28/17 08:30 Ur Specific [place] 1.025 (1.005-1.035) 08/28/17 08:30 Urine Protein Negative mg/dL (<30 mg/dL) 08/28/17 08:30 Urine Glucose (UA) Negative mg/dL (NEGATIVE) 08/28/17 08:30 Urine Ketones Negative mg/dL (NEGATIVE) 05/27/18 08:30 Urine Blood Negative (NEGATIVE) 08/28/17 08:30 Urine Nitrate Negative (NEGATIVE) 08/28/17 08:30 Urine Bilirubin Negative (NEGATIVE) 08/28/17 08:30 Urine Urobilinogen 0.2 E.U./dL (<1 E.U./dL) 08/28/17 08:30 Ur Leukocyte Esterase Trace Destiny/uL (NEGATIVE) H 08/28/17 08:30 Urine RBC Negative /hpf (0-2) 08/28/17 08:30 Urine WBC 0 - 2 /hpf (0-6) 08/28/17 08:30 Ur Epithelial Cells 1 - 3 /hpf (0-5) 08/28/17 08:30 Urine Bacteria Small (NEG) 08/28/17 08:30 - Hospital Course Hospital Course: On Admission: 46 year old female with a past medical history of asthma, hypertension, diverticulosis, and 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 She reports taking Motrin and Tylenol without relief. She rates the pain 7/10, constant in nature, and and razor sharp pain when she defecates. She reports only tolerating crackers. She denies any blood per rectum, hematemesis, melena, She reports nausea, fever, vomiting, and painful defecation. She denies any recent sick contacts, eating anything out of the ordinary, chest pain, diaphoresis, or palpitations. She reports her last attack of diverticulitis was a year ago that required in patient admission. Hospital Course: Patient was kept NPO and given IV antibiotics until belly pain began to resolve. She was started on CLD for which she tolerated. Her diet was advanced slowly as tolerated. She was instructed to follow up for an outpatient colonoscopy and with a surgeon as this is not her first episode of diverticulitis. She was discharged on PO antibiotics for an additional 8 days as well as 4 days of percocet and zofran for nausea. Discharge Exam - Head Exam Head Exam: ATRAUMATIC, NORMAL INSPECTION, NORMOCEPHALIC - Eye Exam Eye Exam: EOMI, Normal appearance, PERRL Pupil Exam: NORMAL ACCOMODATION, PERRL - Respiratory Exam Respiratory Exam: Clear to PA & Lateral, NORMAL BREATHING PATTERN, UNREMARKABLE - Cardiovascular Exam Cardiovascular Exam: REGULAR RHYTHM. absent: Tachycardia - GI/Abdominal Exam GI & Abdominal Exam: Normal Bowel Sounds, Soft, Unremarkable. absent: Distended , Tenderness - Neurological Exam Neurological exam: Alert, CN II-XII Intact, Normal Gait, Oriented x3, Reflexes Normal - Psychiatric Exam Psychiatric exam: Normal Affect, Normal Mood - Skin Skin Exam: Dry, Intact, Normal Color, Warm Discharge Plan - Discharge Medications Prescriptions: Ciprofloxacin HCl [Cipro] 500 mg PO BID 8 Days tablet Metronidazole [Flagyl] 500 mg PO Q8H 8 Days tablet Ondansetron HCl [Zofran] 4 mg PO Q6 PRN 4 Days #15 tablet PRN Reason: Nausea/Vomiting RX: oxyCODONE/Acetaminophen [Percocet 5/325 mg Tab] 1 tab PO Q6H PRN 3 Days #12 tab PRN Reason: Pain, Moderate (4-7) RX: oxyCODONE/Acetaminophen [Percocet 5/325 mg Tab] 1 tab PO Q6H PRN #12 tab PRN Reason: Pain, Moderate (4-7) - Follow Up Plan Condition: STABLE Disposition: HOME/ ROUTINE Instructions: Low Fiber Diet, Nausea and Vomiting, Adult (DC), Diverticulitis ( DC) Additional Instructions: Please follow with Dr. Martell as an outpatient to schedule for Colonoscopy. I have attached his office information. Please call to make an appointment. Please follow up with Dr. Whitlock in his office for to discuss options for possible colon resection. I have attached his office information. Please call to make an appointment. Please follow up with your regular doctor in 7-10 days. Please adhere to a soft diet and advance diet slowly as tolerated. Referrals: Mark Castellanos DO [Primary Care Provider] - Albert Whitlock MD [Staff Provider] - 2 Week Pacheco Martell MD [Medical Doctor] - <Selma Grant - Last Filed: 08/30/17 18:11> Provider - Provider Date of Admission: 08/24/17 20:30 Attending physician: Selma Grant MD Primary care physician: Mark Castellanos DO Hospital Course - Lab Results Lab Results: Micro Results 08/26/17 18:01 Urine Urine Culture - Final No Growth (<1,000 CFU/ML) Most Recent Lab Values WBC 4.6 10^3/ul (4.5-11.0) 08/30/17 07:40 RBC 3.98 10^6/uL (3.5-6.1) 08/30/17 07:40 Hgb 12.2 g/dL (12.0-16.0) 08/30/17 07:40 Hct 35.2 % (36.0-48.0) L 08/30/17 07:40 MCV 88.4 fl (80.0-105.0) 08/30/17 07:40 MCH 30.7 pg (25.0-35.0) 08/30/17 07:40 MCHC 34.7 g/dl (31.0-37.0) 08/30/17 07:40 RDW 12.3 % (11.5-14.5) 08/30/17 07:40 Plt Count 234 10^3/uL (120.0-450.0) 08/30/17 07:40 MPV 8.6 fl (7.0-11.0) 08/30/17 07:40 Gran % 51.5 % (50.0-68.0) 08/30/17 07:40 Lymph % (Auto) 33.9 % (22.0-35.0) 08/30/17 07:40 [place] % (Auto) 7.4 % (1.0-6.0) H 08/30/17 07:40 Eos % (Auto) 7.0 % (1.5-5.0) H 08/30/17 07:40 Baso % (Auto) 0.2 % (0.0-3.0) 08/30/17 07:40 Gran # 2.37 (1.4-6.5) 08/30/17 07:40 Lymph # (Auto) 1.6 (1.2-3.4) 08/30/17 07:40 [place] # (Auto) 0.3 (0.1-0.6) 08/30/17 07:40 Eos # (Auto) 0.3 (0.0-0.7) 08/30/17 07:40 Baso # (Auto) 0.01 K/mm3 (0.0-2.0) 08/30/17 07:40 pO2 30 mm/Hg (30-55) 08/24/17 16:39 VBG pH 7.33 (7.32-7.43) 08/24/17 16:39 VBG pCO2 57.0 (40-60) 08/24/17 16:39 VBG HCO3 30.1 mmol/l (21-28) H 08/24/17 16:39 VBG Total CO2 31.8 mmol.L (22-28) H 08/24/17 16:39 VBG O2 Sat (Calc) 61.5 % (40-65) 08/24/17 16:39 VBG Base Excess 2.8 mmol/L (0.0-2.0) H 08/24/17 16:39 VBG Potassium 4.0 mmol/L (3.6-5.2) 08/24/17 16:39 Sodium 139.0 mmol/L (132-148) 08/24/17 16:39 Chloride 107.0 mmol/L (98-107) 08/24/17 16:39 Glucose 93 mg/dl (65-105) 08/24/17 16:39 Lactate 0.7 mmol/L (0.7-2.1) 08/24/17 16:39 FiO2 21.0 % 08/24/17 16:39 Sodium 143 mmol/L (132-148) 08/30/17 07:40 Potassium 3.9 mmol/L (3.6-5.0) 08/30/17 07:40 Chloride 108 mmol/L (98-107) H 08/30/17 07:40 Carbon Dioxide 26 mmol/L (21-33) 08/30/17 07:40 Anion Gap 13 (10-20) 08/30/17 07:40 BUN 5 mg/dL (7-21) L 08/30/17 07:40 Creatinine 0.9 mg/dl (0.7-1.2) 08/30/17 07:40 Est GFR ( Amer) > 60 08/30/17 07:40 Est GFR (Non-Af Amer) > 60 08/30/17 07:40 Random Glucose 92 mg/dL (70-110) 08/30/17 07:40 Calcium 8.8 mg/dL (8.4-10.5) 08/30/17 07:40 Phosphorus 3.4 mg/dL (2.5-4.5) 08/30/17 07:40 Magnesium 1.8 mg/dL (1.7-2.2) 08/30/17 07:40 Total Bilirubin 0.2 mg/dL (0.2-1.3) 08/30/17 07:40 AST 11 U/L (14-36) L D 08/30/17 07:40 ALT 15 U/L (7-56) 08/30/17 07:40 Alkaline Phosphatase 40 U/L (38-126) 08/30/17 07:40 Total Protein 6.1 g/dL (5.8-8.3) 08/30/17 07:40 Albumin 3.1 g/dL (3.0-4.8) 08/30/17 07:40 Globulin 3.0 gm/dL 08/30/17 07:40 Albumin/Globulin Ratio 1.1 (1.1-1.8) 08/30/17 07:40 Lipase 54 U/L (23-300) 08/24/17 16:39 Venous Blood Potassium 4.0 mmol/L (3.6-5.2) 08/24/17 16:39 Urine Color Yellow (YELLOW) 08/28/17 08:30 Urine Appearance Clear (CLEAR) 08/28/17 08:30 Urine pH 6.0 (4.7-8.0) 08/28/17 08:30 Ur Specific [place] 1.025 (1.005-1.035) 08/28/17 08:30 Urine Protein Negative mg/dL (<30 mg/dL) 08/28/17 08:30 Urine Glucose (UA) Negative mg/dL (NEGATIVE) 08/28/17 08:30 Urine Ketones Negative mg/dL (NEGATIVE) 08/28/17 08:30 Urine Blood Negative (NEGATIVE) 08/28/17 08:30 Urine Nitrate Negative (NEGATIVE) 08/28/17 08:30 Urine Bilirubin Negative (NEGATIVE) 08/28/17 08:30 Urine Urobilinogen 0.2 E.U./dL (<1 E.U./dL) 08/28/17 08:30 Ur Leukocyte Esterase Trace [place]/uL (NEGATIVE) H 08/28/17 08:30 Urine RBC Negative /hpf (0-2) 08/28/17 08:30 Urine WBC 0 - 2 /hpf (0-6) 08/28/17 08:30 Ur Epithelial Cells 1 - 3 /hpf (0-5) 08/28/17 08:30 Urine Bacteria Small (NEG) 08/28/17 08:30 Attending/Attestation - Attestation I have personally seen and examined this patient.: Yes I have fully participated in the care of the patient.: Yes I have reviewed all pertinent clinical information, including history, physical exam and plan: Yes Notes (Text): 08/30/17 18:07 Medical record note made by the resident after discussion with my direction and input after the patient was personally seen and examined by me. I have reviewed the chart and agree that the record accurately reflects by personal performance of the history, physical exam, data review, and medical decision-making, in the course for the patient. I have also personally directed the plan of care. 46 yrs old female was admitted with recurrent diverticulitis with possible micro perforation.Patient was managed conservatively with IV fluid,IV antibiotics and pain medications.Her diet was advanced gradually. Patient abdominal pain is better.She is tolerating soft diet.She will be discharged home on oral ciprofloxacin and Flagyl.Patient has been advised to stay on soft diet and then advance slowly. Patient will need out patient Colonoscopy in 6-8 weeks.This was discussed in detail with her. Management plan was discussed in detail with patient. Education was provided.
--- NOTE | 2017-08-30 16:51 | CP.PCM.PN ---
Subjective - Date & Time of Evaluation Date of Evaluation: 08/30/17 Time of Evaluation: 11:05 - Subjective Subjective: Seen and examined at the bedside earlier this morning, chart review. Patient tolerating solids, abdominal pain improved, reported more feeling of soreness, did have bowel movement no reports of any bleeding. No acute overnight events reported. Objective - Vital Signs/Intake and Output Vital Signs (last 24 hours): Temp Pulse Resp BP Pulse Ox 97.9 F 84 20 129/80 96 08/30/17 07:42 08/30/17 07:42 08/30/17 07:42 08/30/17 07:42 08/30/17 07:42 Intake and Output: 08/30/17 08/30/17 06:59 18:59 Intake Total 360 Output Total 1800 Balance -1440 - Labs Labs: 08/30/17 07:40 08/30/17 07:40 - Constitutional Appears: No Acute Distress - Head Exam Head Exam: NORMOCEPHALIC - Eye Exam Eye Exam: Normal appearance. absent: Scleral icterus - ENT Exam ENT Exam: Mucous Membranes Moist - Respiratory Exam Respiratory Exam: Clear to Ausculation Bilateral, NORMAL BREATHING PATTERN. absent: Respiratory Distress - Cardiovascular Exam Cardiovascular Exam: +S1, +S2 - GI/Abdominal Exam GI & Abdominal Exam: Soft, Normal Bowel Sounds. absent: Guarding, Tenderness, Organomegaly, Rebound - Extremities Exam Extremities Exam: absent: Calf Tenderness, Pedal Edema - Neurological Exam Neurological Exam: Alert, Awake, Oriented x3 - Skin Skin Exam: Dry, Warm Assessment and Plan - Assessment and Plan (Free Text) Assessment: Assessment: Acute diverticulitis, status post CT scan today some microperforation but no abscess noted Morbid obesity History of gastric sleeve Leukocytosis Plan: - CT abd/pelvis showed Left colonic diverticulitis diffuse thickening extending into sigmoid, mirco perforation - patient had upper endoscopy in 2016 showed gastritis and duodenitis - patient will need repeat endoscopy outpatient - continue IV antibiotics: Levaquin and Flagyl - continue to monitor LFT's - GI/DVT prophylaxsis, pt OOB : on Pepcid/ Lovenox - pain mgt Discussed with patient regarding follow-up with [facility] and elective outpatient colonoscopy in about 6-8 weeks after resolution of diverticulitis, patient being referred to GI clinic as per medical team Discussed diet of initially soft low residual diet and can slowly introduce fiber diet after 6 weeks or as tolerated. Patient will be sent home on oral antibiotics Seen and discussed with Dr. Martell
== END 2017-08-30 14:05 | disposition home or self-care (01) | DRG 182 ==
LOC: ED 15:49 → ERH 20:30 → 3RNO 21:09
PROVIDERS: ADMIT Internal Medicine; ATTEND Internal Medicine
DX: K57.20 Diverticulitis of large intestine with perforation and abscess without bleeding (principal); I10 Essential (primary) hypertension; K29.80 Duodenitis without bleeding; K29.70 Gastritis, unspecified, without bleeding; J45.909 Unspecified asthma, uncomplicated; Z98.84 Bariatric surgery status; Z88.0 Allergy status to penicillin